=== PATIENT | female | born 1940 | race Caucasian/White ===

== ENCOUNTER 2016-11-05 02:40 | Inpatient (IN) | payer MEDICARE, BC ==
--- NOTE | 2016-11-05 02:49 | ED ---
Fall HPI - General Stated Complaint: Fall Time Seen by Provider: 11/05/16 02:46 Source: patient, EMS, RN notes reviewed Mode of arrival: EMS Limitations: no limitations - History of Present Illness Initial Comments: 76-year-old female presents emergency Department chief complaint fall. Patient states that she fell going to the bathroom onto her right hip. Patient denies any head injury, LOC. Patient denies any head or neck pain. Patient states she did fall a few days ago and struck her face and which she has some bruising though she has no pain associated with it. Patient states that she's had no prior hip fractures. Patient states that she is unable to get up and unable to ambulate. Patient denies any chest pain, shortness of breath. - Related Data Home Medications Medication Instructions Recorded Confirmed Gabapentin [Neurontin] 100 mg PO DAILY 08/01/14 08/03/14 Hydroxychloroquine Sulfate 200 mg PO BID 08/01/14 08/03/14 [Plaquenil] Methotrexate Sodium [Methotrexate] 2.5 mg PO WEEKLY 08/01/14 08/03/14 Pravastatin Sodium [Pravachol] 20 mg PO DAILY 08/01/14 08/03/14 amLODIPine BESYLATE [Norvasc] 5 mg PO DAILY 08/01/14 08/03/14 Allergies Allergy/AdvReac Type Severity Reaction Status Date / Time No Known Allergies Allergy Verified 08/01/14 12:29 Review of Systems ROS Statement: Those systems with pertinent positive or pertinent negative responses have been documented in the HPI. ROS Other: All systems not noted in ROS Statement are negative. Past Medical History Past Medical History: Hyperlipidemia History of Any Multi-Drug Resistant Organisms: None Reported Past Surgical History: Tubal Ligation Past Psychological History: Depression Smoking Status: Current every day smoker Past Alcohol Use History: Occasional Past Drug Use History: None Reported General Exam Limitations: no limitations General appearance: alert, in no apparent distress Head exam: Present: atraumatic, normocephalic, normal inspection Neck exam: Present: normal inspection, full ROM. Absent: tenderness, meningismus, lymphadenopathy Respiratory exam: Present: normal lung sounds bilaterally. Absent: respiratory distress, wheezes, rales, rhonchi, stridor Cardiovascular Exam: Present: regular rate, normal rhythm, normal heart sounds. Absent: systolic murmur, diastolic murmur, rubs, gallop, clicks Extremities exam: Present: other (There is some rotation on the right leg, tenderness with palpation to the right hip neurovascular intact patient has limited range of motion.) Neurological exam: Present: alert, oriented X3, CN II-XII intact Course Vital Signs 11/05/16 02:43 Pulse Rate 72 Respiratory 20 Rate Blood Pressure 157/78 O2 Sat by Pulse 92 L Oximetry Disposition Clinical Impression: Fall, Hip fracture, right Disposition: ADMITTED IP TO THIS HOSP Condition: Stable Addendum entered and electronically signed by Froy Sawyer, PAC 11/05/16 03:58 : EKG performed at 3:15 normal sinus rhythm with sinus arrhythmia, rate of 97 ND interval 152, QS duration 92, QT/QTC 372/472
--- NOTE | 2016-11-05 03:43 | XR ---
EXAMINATION TYPE: XR Hip RT and AP Pelvis DATE OF EXAM: 11/05/2016 3:32 AM COMPARISON: NONE History pain Technique 4 views. FINDINGS: There is a comminuted intratrochanteric fracture of the right femur with coxa vera deformity. The pel jona ring is intact. There is no dislocation. CONCLUSION: Comminuted intratrochanteric fracture right femur.
--- NOTE | 2016-11-05 03:45 | XR ---
EXAMINATION TYPE: XR chest 1V DATE OF EXAM: 11/05/2016 3:33 AM COMPARISON: NONE HISTORY: Fall. Hip fracture. TECHNIQUE: Single frontal view of the chest is obtained. FINDINGS: There is no heart failure nor confluent pneumonic infiltrate. There is slight coarsening o f interstitial markings. Costophrenic angles are clear. There are no hilar masses. There is mild pleu ral thickening at the lung apices. IMPRESSION: Pulmonary fibrosis and apical pleural scarring. No heart failure.
[2016-11-05 03:51] LABS: Anisocytosis Slight; Basophils % (A) 0 %; CHCM 32.1; Eosinophils # (A) 0.1 k/uL (0-0.7); Eosinophils % (A) 1 %; HCT 31.2 % (34.0-46.0); HDW 2.56; HGB 9.6 gm/dL (11.4-16.0); Luc # (Auto) 0.03; Luc % (Auto) 0; Lymphocytes # (A) 0.3 k/uL (1.0-4.8); Lymphocytes % (A) 2 %; MCH 26.9 pg (25.0-35.0); MCHC 30.7 g/dL (31.0-37.0); MCV 87.5 fL (80.0-100.0); Mean Platelet Volume 7.6; Monocytes # (A) 0.3 k/uL (0-1.0); Monocytes % (A) 2 %; Neutrophils # (A) 12.7 k/uL (1.3-7.7); Neutrophils % (A) 94 %; RBC 3.57 m/uL (3.80-5.40); RDW 16.2 % (11.5-15.5); WBC 13.4 k/uL (3.8-10.6); WBC (Perox) 14.11
[2016-11-05] MEDS ORDERED: ONDANSETRON 4 MG/2 ML VIAL IVP PRN (03:56)
[2016-11-05] MEDS ORDERED: NALOXONE 0.4 MG/ML 1 ML VIAL IV PRN (03:56)
[2016-11-05 04:00] LABS: INR 1.1 (<1.1); Partial Thromboplastin Time 23.7 sec (22.0-30.0); Prothrombin Time 10.8 sec (9.0-12.0)
[2016-11-05 04:02] LABS: ALT 34 U/L (9-52); AST 23 U/L (14-36); Alkaline Phosphatase 74 U/L (38-126); Anion Gap 13 mmol/L; Blood Urea Nitrogen 21 mg/dL (7-17); Calcium 8.9 mg/dL (8.4-10.2); Carbon Dioxide 22 mmol/L (22-30); Chloride 104 mmol/L (98-107); Glucose 104 mg/dL (74-99); Non-African American GFR(MDRD) >60 (>60 ml/min/1.73 sqM); Potassium 3.9 mmol/L (3.5-5.1); Sodium 139 mmol/L (137-145); Total Bilirubin 0.7 mg/dL (0.2-1.3); Total Protein 6.2 g/dL (6.3-8.2)
[2016-11-05 04:06] LABS: Appearance,Urine Cloudy (Clear); Bacteria,Urine Many /hpf; Bilirubin,Urine Negative (Negative); Glucose,Urine (UA) Negative (Negative); Ketones,Urine Negative (Negative); Leukocyte Esterase,Urine Large (Negative); Nitrite,Urine Positive (Negative); PH, Urine 6.5 (5.0-8.0); Particle Count 3904; Protein,Urine 1+ (Negative); RBC,Urine 2 /hpf (0-5); Specific Gravity,Urine 1.006 (1.001-1.035); UA Billing (MACRO vs. MICRO) MICRO; Urobilinogen,Urine <2.0 mg/dL (<2.0); WBC,Urine 88 /hpf (0-5)
[2016-11-05 04:59] VITALS: BMI 18.1
[2016-11-05] MEDS: MORPHINE SULFATE 4 MG/ML SYRINGE IV PRN ×5 (05:13→21:38)
[2016-11-05] MEDS: SODIUM CHLORIDE 0.9% 1,000 ML IV SCH ×2 (05:14→17:52)
--- NOTE | 2016-11-05 08:41 | P.HPOR ---
<Alexandrea Blake - Last Filed: 11/05/16 08:37> History of Present Illness H&P Date: 11/05/16 Chief Complaint: Right hip fracture This is a 76-year-old female who fell in her home yesterday sustaining injury to her right hip. She had a fall a few days prior as well injuring the left side of her face. On exam and x-ray in the emergency department last evening she is found to have an intertrochanteric fracture of the right hip. She is admitted to our service for surgical intervention and care. Past Medical History Past Medical History: Hyperlipidemia History of Any Multi-Drug Resistant Organisms: None Reported Past Surgical History: Tubal Ligation Past Anesthesia/Blood Transfusion Reactions: No Reported Reaction Past Psychological History: Depression Smoking Status: Former smoker Past Alcohol Use History: Occasional Past Drug Use History: None Reported - Past Family History Father Family Medical History: No Reported History Mother Family Medical History: Hyperlipidemia Medications and Allergies Home Medications Medication Instructions Recorded Confirmed Type Gabapentin [Neurontin] 100 mg PO HS 08/01/14 11/05/16 History Hydroxychloroquine Sulfate 200 mg PO BID 08/01/14 11/05/16 History [Plaquenil] Methotrexate Sodium [Methotrexate] 17.5 mg PO WE 08/01/14 11/05/16 History Pravastatin Sodium [Pravachol] 20 mg PO HS 08/01/14 11/05/16 History amLODIPine BESYLATE [Norvasc] 5 mg PO DAILY 08/01/14 11/05/16 History Cholecalciferol [Vitamin D3] 2,000 unit PO BID 11/05/16 11/05/16 History Famotidine [Pepcid AC] 10 mg PO BID 11/05/16 11/05/16 History Folic Acid 1 mg PO DAILY 11/05/16 11/05/16 History Krill Oil 800 mg PO BID 11/05/16 11/05/16 History buPROPion XL [Wellbutrin Xl] 150 mg PO DAILY 11/05/16 11/05/16 History traMADol HCL [Ultram] 50 mg PO DAILY PRN 11/05/16 11/05/16 History Allergies Allergy/AdvReac Type Severity Reaction Status Date / Time No Known Allergies Allergy Verified 08/01/14 12:29 Physical Examination This is a 68-year-old female in no acute distress. She is alert and oriented 3. Exam of the head neck reveal no obvious deformity. There is ecchymosis about the left side of her face about the mandible and chin. There is no pain to palpation about cervical spine or paraspinal musculature. Exam the upper extremities unremarkable. She has full shoulder, elbow, wrist and finger motion without difficulty or pain. Neurovascular status to the upper extremities is intact. Exam of the lower extremities reveals shortening and external rotation of the right leg. There is pain with any motion to the right hip. She has full foot and ankle motion without difficulty. Pedal pulse +2/4. Neurovascular status to the lower extremities intact. Results X-rays of the pelvis and right hip reveal a comminuted intertrochanteric fracture of the right hip which may possibly extend into the subtrochanteric region. - Labs Result Diagrams: 11/05/16 03:44 11/05/16 03:44 Assessment and Plan (1) Intertrochanteric fracture of right hip Status: Acute Plan: The clinical Findings are discussed with the patient. We're planning closed reduction with insertion of intertrochanteric nail of the right hip today. The procedures been discussed in detail including the possible risks and outcomes of surgery. It is recommended that the patient go to inpatient rehab postoperatively. After discussion and consideration the patient elects to proceed with the above- mentioned procedure. <Haily Garcia - Last Filed: 11/06/16 09:42> History of Present Illness H&P Date: 11/05/16 Pt. seen and examined in preoperative area. chart reviewed .. Patient and had questions which were answered to the best of my ability. Risk of the injury and proposed treatment were dicussed. They elect ot proceed with right hip surgery for her intertrochanteric frature as planned. Physical Examination Osteopathic Statement: *. No significant issues noted on an osteopathic structural exam other than those noted in the History and Physical/Consult. Results - Labs Labs: Abnormal Lab Results - Last 24 Hours (Table) 11/06/16 Range/Units 03:05 Urine Appearance Turbid H (Clear) Urine Protein 1+ H (Negative) Urine Blood Small H (Negative) Ur Leukocyte Esterase Large H (Negative) Urine RBC 18 H (0-5) /hpf Urine WBC >182 H (0-5) /hpf Urine WBC Clumps Many H (None) /hpf Urine Bacteria Occasional H (None) /hpf Urine Mucus Occasional H (None) /hpf Result Diagrams: 11/05/16 03:44 11/05/16 03:44
[2016-11-05] MEDS ORDERED: LEVOFLOXACIN 500MG-D5W PMX 500 MG in DEXTROSE/WATER 1 100ML.BAG IVPB SCH (11:00)
[2016-11-05] MEDS: DIAZEPAM 5 MG/ML 2 ML SYRINGE IVP PRN ×3 (11:03→23:55)
[2016-11-05] MEDS: traMADol 50 MG TAB PO PRN (14:20)
[2016-11-05] MEDS: PRAVASTATIN SODIUM 20 MG TAB PO SCH (21:10)
[2016-11-05] MEDS: GABAPENTIN 100 MG CAP PO SCH (21:11)
[2016-11-05] MEDS: FAMOTIDINE 20 MG TAB PO SCH (21:11)
[2016-11-05] MEDS: HYDROXYCHLOROQUINE SULFATE 200 MG TAB PO SCH (21:12)
--- NOTE | 2016-11-05 23:02 | CONS ---
DATE OF CONSULTATION: REASON FOR CONSULTATION: Preoperative clearance. Patient is a 76-year-old female who had a mechanical fall and sustained an injury to the right hip. Patient is undergoing intramedullary nailing. I was consulted for preoperative clearance. Patient is clinically doing well. Patient's past medical history is significant for hyperlipidemia. Patient's functional status is greater than 4 ( ). Patient denied any fever or chills. Patient used to smoke in the past, years ago. Patient had moderate aortic stenosis from the previous echocardiogram. EKGs showed normal sinus rhythm. Patient does not have any chest pain. Patient is not in heart failure. Patient is at intermediate risk because of her age and previous aortic stenosis, but patient should not have any problems during the preoperative and operative period. ROS: all other systems were reviewed and were negative. Past medical history is significant for: 1. Advanced dementia. 2. Diabetes mellitus 3. Gastroesophageal reflux disease. 4. Hypertension. 5. Not sure whether patient has CKD or not. 6. Alzheimer's dementia. 7. Metabolic encephalopathy. 8. Osteomyelitis in the past. Not sure whether patient ever smoked or ever drank alcohol. ( ) at this time FAMILY HISTORY: Irrelevant at this point of time. Unable to obtain. Home medications included: 1. Acetaminophen. 2. Aspirin. 3. Lorazepam. 4. Metoprolol. 5. Omeprazole. 6. Seroquel. 7. Metformin. 8. Docusate. 9. Silver gel. ALLERGIES: NO KNOWN DRUG ALLERGIES. PHYSICAL EXAMINATION: VITAL SIGNS: Temperature 99.6, pulse of 95, respiratory rate of 28. Blood pressure is 129/57. Saturating at 98% on room air. GENERAL: Patient is non-verbal. Patient is alert. Unable to assess orientation. HEENT: Pupils are round and equally reacting to light. EOMI. No scleral icterus. No conjunctival pallor. Normocephalic, atraumatic. No pharyngeal erythema. No thyromegaly. CARDIOVASCULAR: S1 and S2 present. No murmurs, rubs, or gallops. PULMONARY: Chest is clear to auscultation, no wheezing or crackles. ABDOMEN: Soft, nontender, nondistended, normoactive bowel sounds. No palpable organomegaly. MUSCULOSKELETAL: No joint swelling or deformity. EXTREMITIES: No cyanosis, clubbing, or pedal edema. NEUROLOGICAL: Significantly limited. Unable to assess at this point of time, although patient does not have any ( ) new focal deficits. SKIN: No rashes. Patient does have a chronic Agrawal catheter with significant evidence of pyuria, which I believe ( ) during this hospitalization. LABORATORY DATA: Patient has a PEG tube in place. PEG tube site area does not appear to be infected. CBC, CMP are abnormal for elevated WBC count of 18,400. Patient has mild low-grade fever. Hemoglobin of 11.5. BUN of 41, creatinine 1.40. His normal creatinine is around 0.4. Blood glucose is 190. ABGs show 7.48 pH and pCO2 of 32, pO2 of 130. UA significantly abnormal with greater than 182 WBCs, although patient has a Agrawal catheter. Chest x-ray showed some atelectasis. ASSESSMENT AND PLAN: 1. Severe sepsis and septic shock temporarily requiring pressor support, and ( ) urinary tract infection. Patient has a chronic Agrawal catheter. This is probably related to a Agrawal catheter-related infection. Patient was on pressor support. Will continue with Zosyn. I do not believe levofloxacin is necessary, and levofloxacin will be discontinued. 2. Altered mental status and metabolic encephalopathy secondary to sepsis. 3. Advanced dementia. Discussed with ( ) Patient most appropriately will be comfort care and hospice. 4. Elevated troponins. Rule out [id number] myocardial infarction. Cardiology was consulted. 5. Acute renal failure, probably due to prerenal azotemia and septic shock. 6. Metabolic acidosis, metabolic alkalosis ( ) secondary to possible lactic acidosis. Metabolic alkalosis secondary to contraction alkalosis. Patient does have superimposed respiratory alkalosis to correct metabolic acidosis. 7. Type 2 diabetes mellitus. 8. Hypertension. 9. Possibility of chronic kidney disease, stage II. 10. Gastroesophageal reflux disease. 11. Anxiety disorder. Plan is to continue with IV fluids, IV antibiotics. In ideal scenario, patient should not be on morphine and patient should not be on Xanax, but in his situation, patient most probably will go for comfort care. Because of that reason, I am going ahead and continuing those medications and continue with antibiotics. Continue with IV fluids. Discussed course of care with the guardian. Patient, as mentioned above, is appropriate for comfort care. Those decisions will be made ( ) tomorrow once we have the guardian here. MARÍA
[2016-11-06 03:38] LABS: Appearance,Urine Turbid (Clear); Bacteria,Urine Occasional /hpf; Bilirubin,Urine Negative (Negative); Glucose,Urine (UA) Negative (Negative); Ketones,Urine Negative (Negative); Leukocyte Esterase,Urine Large (Negative); Mucus,Urine Occasional /hpf; Nitrite,Urine Negative (Negative); Particle Count 64885; Protein,Urine 1+ (Negative); RBC,Urine 18 /hpf (0-5); Squamous Epithelial Cell,Urine 2 /hpf (0-4); UA Billing (MACRO vs. MICRO) MICRO; Urobilinogen,Urine <2.0 mg/dL (<2.0); WBC,Urine >182 /hpf (0-5)
[2016-11-06] MEDS: SODIUM CHLORIDE 0.9% 1,000 ML IV SCH ×2 (05:45→21:25)
[2016-11-06] MEDS ORDERED: ONDANSETRON 4 MG/2 ML VIAL IVP PRN (06:32)
[2016-11-06] MEDS ORDERED: HYDROmorphone 1 MG/ML 1 ML SYRINGE IVP PRN (06:32)
[2016-11-06] MEDS ORDERED: IV FLUID CONTINUATION 1,000 ML IV ONE (08:50)
[2016-11-06] MEDS: HYDROXYCHLOROQUINE SULFATE 200 MG TAB PO SCH ×2 (09:09→21:27)
[2016-11-06] MEDS: buPROPion XL 150 MG TAB.ER.24H PO SCH (09:09)
[2016-11-06] MEDS: FAMOTIDINE 20 MG TAB PO SCH ×2 (09:09→21:27)
[2016-11-06] MEDS ORDERED: PHENYLEPHRINE-0.9% NACL SYG 1 MG/10 ML SYRINGE ONE (09:33)
[2016-11-06] MEDS ORDERED: ePHEDrine 50 MG/ML 1 ML AMP ONE (09:33)
[2016-11-06] MEDS ORDERED: PROPOFOL 10 MG/ML 20 ML VIAL IV ONE (09:33)
[2016-11-06] MEDS ORDERED: MIDAZOLAM 2 MG/2 ML VIAL ONE (09:33)
[2016-11-06] MEDS ORDERED: KETAMINE 10 MG/ML 20 ML VIAL ONE (09:33)
[2016-11-06] MEDS ORDERED: fentaNYL (PF) 50 MCG/ML 2 ML AMP ONE (09:33)
[2016-11-06] MEDS: ceFAZolin 2 GM in SODIUM CHLORIDE 0.9% 100 ML IVPB ONE ×3 (09:35→16:08)
[2016-11-06] MEDS ORDERED: ceFAZolin 1,000 MG in SODIUM CHLORIDE 0.9% 1,000 ML IRRIGATION ONE (10:14)
[2016-11-06] MEDS ORDERED: LACTATED RINGERS 1,000 ML IV ONE (10:15)
[2016-11-06] MEDS: LACTATED RINGERS 1,000 ML IV SCH (10:52)
[2016-11-06] MEDS ORDERED: MAGNESIUM HYDROXIDE 2,400 MG/10 ML CUP PO PRN (10:58)
[2016-11-06] MEDS ORDERED: NALOXONE 0.4 MG/ML 1 ML VIAL IV PRN (10:58)
[2016-11-06] MEDS ORDERED: HYDROcodone/APAP 5-325MG 1 EACH TAB PO PRN ×2 (10:58)
--- NOTE | 2016-11-06 11:02 | XR ---
EXAMINATION TYPE: XR Hip Complete RT DATE OF EXAM: 11/06/2016 10:56 AM COMPARISON: NONE HISTORY: Postoperative change There is postoperative change in near anatomic alignment. There is soft tissue edema and emphysema. IMPRESSION: 1. Postoperative change. Appears in near-anatomic alignment.
--- NOTE | 2016-11-06 11:02 | FL ---
EXAMINATION TYPE: FL guidance operating room DATE OF EXAM: 11/06/2016 10:56 AM HISTORY: Flouroscopy time 1 minute and 19 seconds of fluoroscopy provided. IMPRESSION: 1. Fluoroscopy time.
--- NOTE | 2016-11-06 11:13 | P.OP ---
Date of Procedure: 11/06/16 Preoperative Diagnosis: Right hip comminuted intertrochanteric fracture, closed neurovascular intact Postoperative Diagnosis: Same Procedure(s) Performed: Implants: Anesthesia: spinal Pathology: other (Proximal femoral reamings sent to pathology) Condition: stable Indications for Procedure: Operative Findings: Description of Procedure: Preoperative diagnosis: Intertrochanteric femoral hip fracture, right comminuted neurovascular intact Postoperative diagnosis: Same Procedure: intertrochanteric hip screw placement Use of fluoroscopic guidance Closed reduction Surgeon: Dr. Radha Dupree.: Alexandrea Blake who is present that the entire the case persistence during positioning dissection exposure placement of hardware and closure Anesthesia: Spinal Estimated blood loss: Approximately 50 mL Components implanted: [employer] InterTAN nail 11.5 x 18, with a 95 mm lag screw and 90 mm compression screw and a 27.5 x 5 distal locking screw Disposition: To recovery room in good stable condition Operative indications The patient sustained a injury and suffered a hip fracture at the inter- trochanteric area of her femur which was displaced and angulated. We were involved in the case in regard to his hip fracture. After evaluation it was determined that they would be a candidate for internal fixation of the fracture using an intramedullary hip screw via surgical intervention. This would give them the best chance of healing, mobilization and ambulation. We discussed the range of treatment options from conservative to surgical. I discussed the case with the patient and with her at length in the preoperative holding area before the procedure. We discussed the nature of the injury as well as the different treatment options. They elected proceed with surgical intervention. We answered their questions to the best of our ability healing which they can understand. They signed an informed consent. Operative summary After obtaining informed consent evaluation by anesthesia, preoperative evaluation and clearance for medical service, the patient was identified and prepped Agrawal area and the surgical site was marked. There brought to the operating room where the given appropriate anesthesia by the anesthesia department in standard fashion without any complications. Once the anesthesia was established we were able to position the patient. The patient was placed on a fracture table with a well-padded perineal post. The operative side was placed in a foot olmstead stirrup which was well-padded well molded and placed in gentle in-line traction. The nonoperative leg was placed in a padded stirrup. C-arm was brought in and we performed a closed reduction technique at the hip. We are able to get good alignment good position of the intertrochanteric fracture with gentle reduction techniques and traction utilizing the fracture table. Once patient was well positioned lower extremity was prepped and draped in normal standard sterile fashion. An appropriate keystone protocol and timeout was completed and were able to proceed with surgery. He started point just proximal to the greater trochanter was established and a median incision approximately 2 inches in length approximately to the greater trochanter. I dissected down through the fascia and I was able to expose the tip of the greater trochanter. A sharp starting hole was established at the tip of the greater trochanter near the junction of the anterior and middle third. Positioning was confirmed with C-arm guidance. I was able to start the awl into the bone and then use a guidepin at the starting point establish down to the level of the lesser trochanter at the intramedullary space. I then used a starting reamer for the greater trochanter placed over the guidepin and reamed down appropriately under C-arm guidance. I was unable to place a guidepin into the intramedullary aspect of the femur and then reamed appropriately to the appropriate length. The positioning was confirmed on C-arm guidance. With the femur appropriately reamed I then chose the appropriate size intramedullary aylin which was connected to the appropriate jig. The jig was checked for alignment. The area was copiously irrigated and suctioned dry and we're able place the aylin at intramedullary space through the starting hole appropriately. It was seated down for appropriate position to align the leg pain into the femoral neck and head. A second incision was established at the site for the placement of the lag screw area and the guide was established at the lateral aspect of the femur and a guidepin was drilled into the femoral neck and head and near center center position. With this appropriate alignment and position where a reamer over the guidepin making sure not to penetrate the articular surface. The position was confirmed on C-arm guidance in AP and lateral positions. With this established we were able to place the appropriate size lag screw after measuring. I did the appropriate drill holes for the lag screw and the compression screw. Lag screw was placed into the femoral neck and head good alignment good position with excellent bony purchase. I was able place the compression screw which gave good compression across the fracture site and excellent bony purchase and alignment. It was appropriately aligned, with the fracture and excellent alignment and position. With the area in good position able place a distal locking screw. We utilized the triple guide sleeve a separate incision was made at the skin. The guide sleeve was placed in the lateral aspect of the femur and the distal locking screw hole was established through the femur and distal locking hole of the intramedullary aylin. It was measured appropriately and a distal locking screw was placed in good alignment and good position with excellent bony purchase. The position was checked to make sure it was through the appropriate hole in the intramedullary aylin. With this established we're able to remove the jig completely from the aylin and final images were taken which showed excellent alignment and position of the hardware and the fracture. With the aylin in place and the fracture stable, although the incision sites were copiously irrigated and suctioned dry. Good hemostasis was maintained. Deep fascial layers were closed with #1 Vicryl. Subcu tissue was closed with 2-0 Vicryl. Subcuticular tissues closed with 3-0 Vicryl. Was are cleaned and dried with dressed with Dermabond, gauze and tape. Drapes were broken down, the hip was held in stable position with the post being removed safely once the positioning was stabilized. The patient was then transferred back to their hospital bed being careful to maintain the hip and C- spine alignment and airway. Once stable to patient was transferred back to the postanesthesia care unit to be readmitted for pain control and DVT prophylaxis medical management and monitoring and mobilization we will continue follow patient closely throughout their postoperative course.
[2016-11-06] MEDS ORDERED: hydrALAZINE HCL 20 MG/ML 1 ML VIAL IVP PRN (12:43)
[2016-11-06] MEDS: LEVOFLOXACIN 250MG-D5W PMX 250 MG in DEXTROSE/WATER 1 50ML.BAG IVPB SCH (13:58)
[2016-11-06 14:09] LABS: Basophils % (A) 0 %; CH 26.9; Eosinophils % (A) 0 %; HCT 32.4 % (34.0-46.0); HDW 2.61; HGB 9.9 gm/dL (11.4-16.0); Hypochromasia Marked; Luc # (Auto) 0.19; Luc % (Auto) 1; Lymphocytes # (A) 0.5 k/uL (1.0-4.8); Lymphocytes % (A) 4 %; MCH 27.7 pg (25.0-35.0); MCHC 30.7 g/dL (31.0-37.0); MCV 90.2 fL (80.0-100.0); Mean Platelet Volume 7.7; Monocytes # (A) 0.3 k/uL (0-1.0); Monocytes % (A) 2 %; Neutrophils # (A) 12.4 k/uL (1.3-7.7); Neutrophils % (A) 92 %; RBC 3.59 m/uL (3.80-5.40); RDW 15.7 % (11.5-15.5); WBC 13.5 k/uL (3.8-10.6); WBC (Perox) 13.89
[2016-11-06] MEDS: ceFAZolin 2 GM in SODIUM CHLORIDE 0.9% 100 ML IVPB SCH ×2 (16:37→23:29)
[2016-11-06] MEDS ORDERED: WARFARIN 5 MG TAB PO ONE (18:00)
[2016-11-06] MEDS: CHOLECALCIFEROL 1,000 UNIT TAB PO SCH (21:26)
[2016-11-06] MEDS: PRAVASTATIN SODIUM 20 MG TAB PO SCH (21:27)
[2016-11-06] MEDS: GABAPENTIN 100 MG CAP PO SCH (21:27)
[2016-11-07] MEDS: LACTATED RINGERS 1,000 ML IV SCH (01:57)
[2016-11-07 07:22] LABS: INR 1.1 (<1.1); Prothrombin Time 11.2 sec (9.0-12.0)
[2016-11-07] MEDS: amLODIPine 5 MG TAB PO SCH (07:42)
[2016-11-07] MEDS: CHOLECALCIFEROL 1,000 UNIT TAB PO SCH ×2 (07:42→22:09)
[2016-11-07] MEDS: HYDROXYCHLOROQUINE SULFATE 200 MG TAB PO SCH ×2 (07:43→22:06)
[2016-11-07] MEDS: FAMOTIDINE 20 MG TAB PO SCH ×2 (07:43→22:06)
[2016-11-07] MEDS: buPROPion XL 150 MG TAB.ER.24H PO SCH (07:43)
[2016-11-07] MEDS: traMADol 50 MG TAB PO PRN ×2 (07:44→12:37)
[2016-11-07] MEDS: LEVOFLOXACIN 250MG-D5W PMX 250 MG in DEXTROSE/WATER 1 50ML.BAG IVPB SCH (07:44)
--- NOTE | 2016-11-07 09:43 | P.PN ---
Progress Note - Text Postoperative day #1 Patient is seen and examined today at bedside. The patient has some pain around the surgical site as expected. Pain is being controlled with medication. She declines try to get up out of bed with therapy today but I encouraged her that she needs to get out of bed today with toe-touch weightbearing on the right lower extremity. Physical Exam Afebrile with stable vital signs Abdomen is soft nontender. Chest has good excursion deep and space expiration The incision site is clean dry and intact. No erythema there is no purulence. Her right hip has minimal swelling. The dressing is intact. Extremities have not had neurologic change from prior to surgery. She has sustained dorsiflexion plantar flexion and extensor hallucis longus. We are able to some in her knee and rotated her hip this morning and she tolerated that adequately. Calves and thighs were soft nontender without evidence of DVT. Assessment/Plan Postoperative day #1 status post intramedullary hip screw for her right intertrochanteric hip fracture status post fall Patient is progressing as expected from the surgery. She needs to get up out of bed today with assistance. I encouraged her that she should not decline the assistance to get out of bed and will get out of bed today toe-touch weightbearing right lower extremity. Hopefully we'll be able to get her fully out as she improves her mobility. Her urine certainly looks more clear today. We will continue to increase the patient's mobilization with therapy. We will continue pain control with oral or IV medications. We'll continue to follow patient closely. She is a likely candidate for rehab at [facility] potentially Wednesday or Wednesday.
--- NOTE | 2016-11-07 11:19 | PN ---
DATE OF SERVICE: 11/06/2016 This 76-year-old woman was admitted with severe sepsis and septic shock related to urinary tract infection. She is being closely monitored. The patient appears to be tired. The patient also had a change in mental status also. The patient is being closely monitored at this time. The patient had a right hip fracture. The patient underwent intertrochanteric ablation. The patient is sedated at this time after surgery. PAST MEDICAL HISTORY: Reviewed. REVIEW OF SYSTEMS: The patient is sedated. Current medications are reviewed and include: 1. [place] 5 mg every 6 hours. 2. Norvasc. 4. Vitamin D3. 5. Valium. 6. Pepcid. 7. Folic acid. 8. Dilaudid. 9. Plaquenil. 10. Milk of Magnesia. 11. Methotrexate. 12. Narcan. 13. Zofran. 14. Zocor. 15. Pravachol. 16. Ultram. PHYSICAL EXAMINATION: Patient is sedated. Pulse 57, blood pressure 130/60, respirations 16, temperature 97.4, pulse ox 94% on 3 liters. HEENT: Conjunctivae normal. Oral mucosa moist. NECK: No jugular venous distention, no carotid bruits, no lymph node enlargement. CARDIOVASCULAR: S1 and S2. LUNGS: Breath sounds are diminished at the bases. No rhonchi. ABDOMEN: Soft, nontender. EXTREMITIES: Legs status post surgery. NERVOUS SYSTEM: No focal deficit. LABS: WBC 13.5, hemoglobin is 9.9. UA noted. ASSESSMENT: 1. Right hip comminuted intertrochanteric fracture, status post intertrochanteric hip screw placement and a closed reduction. 2. Urinary tract infection with sepsis, septic shock and severe sepsis, possibly Agrawal catheter related. 3. Change in mental status, metabolic encephalopathy. 4. History of dementia. 5. Elevated troponin, indeterminate. 6. Acute renal failure, possible, possibly prerenal. 7. Diabetes mellitus type 2. 8. Hypertension. 9. Chronic kidney disease, stage II. 10. Gastroesophageal reflux disease. 11. History of anxiety state. 12. FULL CODE. 13. Moderate to severe protein calorie malnutrition with body mass index of 18.1. 14. Gait dysfunction. RECOMMENDATIONS: This 70-year-old woman presented with multiple complex medical problems. We will monitor the patient closely, continue current medications and continue with broad spectrum IV antibiotics. Follow cultures. Closely follow with orthopedic surgery. DVT prophylaxis. Otherwise, guarded prognosis because of multiple complex medical issues. Further recommendations to follow. MTDD
[2016-11-07] MEDS: FOLIC ACID 1 MG TAB PO SCH (12:37)
[2016-11-07] MEDS: SODIUM CHLORIDE 0.9% 1,000 ML IV SCH (17:21)
[2016-11-07] MEDS ORDERED: WARFARIN 7.5 MG TAB PO ONE (18:00)
[2016-11-07] MEDS: PRAVASTATIN SODIUM 20 MG TAB PO SCH (22:06)
[2016-11-07] MEDS: GABAPENTIN 100 MG CAP PO SCH (22:09)
[2016-11-08] MEDS: SODIUM CHLORIDE 0.9% 1,000 ML IV SCH ×3 (01:30→21:19)
[2016-11-08] MEDS: LACTATED RINGERS 1,000 ML IV SCH ×2 (04:05→21:19)
[2016-11-08] MEDS: HYDROXYCHLOROQUINE SULFATE 200 MG TAB PO SCH ×2 (07:50→21:16)
[2016-11-08] MEDS: CHOLECALCIFEROL 1,000 UNIT TAB PO SCH ×2 (07:50→21:15)
[2016-11-08] MEDS: FAMOTIDINE 20 MG TAB PO SCH ×2 (07:51→21:16)
[2016-11-08] MEDS: amLODIPine 5 MG TAB PO SCH (07:51)
[2016-11-08] MEDS: buPROPion XL 150 MG TAB.ER.24H PO SCH (07:51)
[2016-11-08] MEDS: FOLIC ACID 1 MG TAB PO SCH (07:52)
--- NOTE | 2016-11-08 10:02 | PN ---
DATE OF SERVICE: 11/07/2016 This 70-year-old woman was admitted with right hip surgery. The patient also had urinary tract infection. Patient is on broad-spectrum IV antibiotics. No chest pain, no palpitation, no fever. Sensorium has improved slightly today. On exam, alert and oriented x2. Pulse 90, blood pressure 135/60, respiratory rate 16, temperature 98.2, pulse ox 93% on room air. HEENT: Conjunctivae normal. NECK: No jugular venous distention. HEART: S1 and S2, muffled. RESPIRATORY: Breath sounds diminished, especially at the bases. Scattered rhonchi. ABDOMEN: Soft, no tenderness. EXTREMITIES: Status post surgery. NERVOUS: No focal deficits. Diffusely weak. LABS: WBC 13.3, hemoglobin is 9.9. UA noted. Cultures are pending at this time. REVIEW OF SYSTEMS: ENT: No history of diminished hearing or vision. CARDIOVASCULAR: No angina or palpitations. RESPIRATORY: No cough, no hemoptysis. GASTROINTESTINAL: No nausea, vomiting, or diarrhea. GENITOURINARY: No dysuria. NERVOUS: No numbness or weakness. Current medications are: 1. [place] 5 mg q6 hours. 2. Norvasc 5 mg daily. 3. Vitamin D3 4. Valium. 5. Wellbutrin. 6. Folic acid. 9. Levaquin 250 daily. 10. Methotrexate. 11. Morphine. 12. Narcan. 13. Zofran. 14. Pravachol. 15. Ultram. 16. Coumadin. ASSESSMENT: 1. Right hip comminuted intertrochanteric fracture, status post intertrochanteric hip screw placement as well as closed reduction. 2. Urinary tract infection with sepsis, present on admission, septic shock with severe sepsis, possible Agrawal catheter induced related. 3. Change in mental status, metabolic encephalopathy. 4. History of dementia. 5. Elevated troponin, indeterminate. 6. Acute renal failure, possible prerenal with acute tubular necrosis. 7. Diabetes mellitus type 2. 8. Hypertension. 9. Chronic kidney disease, stage II. 10. Gastroesophageal reflux disease. 11. History of anxiety state. 12. Moderate to severe protein calorie malnutrition with a body mass of 18.1. 13. Gait dysfunction. 14. FULL CODE. RECOMMENDATIONS AND DISCUSSION: This 70-year-old woman presented with multiple complex medical issues. Will monitor the patient closely, continue the current medication, await culture. White count is still elevated, will recommend repeat labs. Continue antibiotics, DVT prophylaxis. Guarded prognosis because of multiple complex medical issues. Further recommendations to follow. MTDD
--- NOTE | 2016-11-08 10:50 | P.PN ---
Subjective Principal diagnosis: Right hip fracture Patient is postop day #2 from insertion of right IT nail for her intertrochanteric hip fracture. She has pain at the surgical site which is controlled. She denies any new complaints. She is denying numbness, tingling or weakness in the lower extremity. She has no calf pain. Review of systems is negative for fever, chills, chest pain, shortness breath or other. Objective - Vital Signs Vital signs: Vital Signs Temp 97.7 F 11/08/16 07:00 Pulse 83 11/08/16 08:00 Resp 14 11/08/16 08:00 BP 172/76 11/08/16 07:00 Pulse Ox 93 L 11/08/16 07:00 Intake & Output 11/07/16 11/08/16 11/08/16 18:59 06:59 18:59 Intake Total 960 150 Output Total 500 1300 Balance 460 -1150 Intake: IV 600 Sodium Chloride 0.9% 1, 600 000 ml @ 75 mls/hr IV . [id number] JARRED Rx#:[id number] Oral 360 150 Output: Urine 500 1300 Uretheral (Agrawal) 1300 Other: Voiding Method Indwelling Catheter Indwelling Catheter Indwelling Catheter - Exam Inspection of the right lower extremity shows benign surgical wounds. There is no active bleeding, dehiscence or drainage. Motor and sensation is intact throughout the right lower extremity. She has active dorsiflexion and plantarflexion along with sensation to light touch intact. The calf is soft and nontender. 2+ dorsalis pedis pulses and less than 2 second cap refill is present. - Constitutional General appearance: Present: no acute distress - Psychiatric Psychiatric: Present: A&O x's 3, appropriate affect, intact judgment & insight - Labs CBC & Chem 7: 11/06/16 13:44 11/05/16 03:44 Labs: Microbiology - Last 24 Hours (Table) 11/07/16 14:15 Urine Culture - Preliminary Urine,Catheterized Assessment and Plan (1) Intertrochanteric fracture of right hip Narrative/Plan: She'll continue with routine postop orthopedic protocol including pain management, wound care, physical therapy, DVT prophylaxis and medical management. Expect that she will transfer to an extended care facility in the next 1-2 days. Status: Acute Time with Patient: Less than 30
[2016-11-08 10:54] LABS: Basophils % (A) 0 %; CH 26.9; CHCM 30.6; Eosinophils # (A) 0.1 k/uL (0-0.7); Eosinophils % (A) 1 %; HCT 32.3 % (34.0-46.0); HDW 2.71; Hypochromasia Moderate; Luc # (Auto) 0.22; Luc % (Auto) 2; Lymphocytes # (A) 0.6 k/uL (1.0-4.8); Lymphocytes % (A) 7 %; MCH 27.2 pg (25.0-35.0); MCHC 30.8 g/dL (31.0-37.0); MCV 88.3 fL (80.0-100.0); Mean Platelet Volume 7.1; Monocytes # (A) 0.3 k/uL (0-1.0); Monocytes % (A) 4 %; Neutrophils # (A) 8.2 k/uL (1.3-7.7); Neutrophils % (A) 87 %; RBC 3.66 m/uL (3.80-5.40); RDW 15.9 % (11.5-15.5); WBC 9.4 k/uL (3.8-10.6)
[2016-11-08 11:13] LABS: Anion Gap 14 mmol/L; Blood Urea Nitrogen 14 mg/dL (7-17); Calcium 8.6 mg/dL (8.4-10.2); Carbon Dioxide 24 mmol/L (22-30); Chloride 104 mmol/L (98-107); Glucose 112 mg/dL (74-99); Non-African American GFR(MDRD) >60 (>60 ml/min/1.73 sqM); Potassium 3.2 mmol/L (3.5-5.1); Sodium 142 mmol/L (137-145)
[2016-11-08] MEDS: LEVOFLOXACIN 250MG-D5W PMX 250 MG in DEXTROSE/WATER 1 50ML.BAG IVPB SCH (11:41)
[2016-11-08 12:19] LABS: INR 2.6 (<1.1); Prothrombin Time 25.5 sec (9.0-12.0)
[2016-11-08] MEDS ORDERED: POTASSIUM CHLORIDE ER 20 MEQ TAB.ER PO STA (15:37)
[2016-11-08] MEDS ORDERED: WARFARIN 2.5 MG TAB PO ONE (18:00)
[2016-11-08] MEDS: GABAPENTIN 100 MG CAP PO SCH (21:16)
[2016-11-08] MEDS: PRAVASTATIN SODIUM 20 MG TAB PO SCH (21:16)
[2016-11-09 07:39] LABS: Basophils % (A) 0 %; CH 27.2; CHCM 31.2; Eosinophils # (A) 0.1 k/uL (0-0.7); Eosinophils % (A) 1 %; HCT 29.5 % (34.0-46.0); HDW 2.67; Hypochromasia Slight; Luc # (Auto) 0.17; Luc % (Auto) 3; Lymphocytes # (A) 0.6 k/uL (1.0-4.8); Lymphocytes % (A) 10 %; MCH 26.8 pg (25.0-35.0); MCHC 30.5 g/dL (31.0-37.0); MCV 87.6 fL (80.0-100.0); Mean Platelet Volume 8.7; Monocytes # (A) 0.5 k/uL (0-1.0); Monocytes % (A) 7 %; Neutrophils # (A) 5.1 k/uL (1.3-7.7); Neutrophils % (A) 80 %; RBC 3.36 m/uL (3.80-5.40); RDW 15.9 % (11.5-15.5); WBC 6.4 k/uL (3.8-10.6); WBC (Perox) 7.17
[2016-11-09 08:05] LABS: Anion Gap 11 mmol/L; Blood Urea Nitrogen 19 mg/dL (7-17); Calcium 8.6 mg/dL (8.4-10.2); Carbon Dioxide 27 mmol/L (22-30); Chloride 105 mmol/L (98-107); Glucose 105 mg/dL (74-99); Non-African American GFR(MDRD) >60 (>60 ml/min/1.73 sqM); Potassium 3.6 mmol/L (3.5-5.1); Sodium 143 mmol/L (137-145)
[2016-11-09] MEDS: CHOLECALCIFEROL 1,000 UNIT TAB PO SCH (08:28)
[2016-11-09] MEDS: amLODIPine 5 MG TAB PO SCH (08:29)
[2016-11-09] MEDS: HYDROXYCHLOROQUINE SULFATE 200 MG TAB PO SCH (08:29)
[2016-11-09] MEDS: traMADol 50 MG TAB PO PRN (08:29)
[2016-11-09] MEDS: buPROPion XL 150 MG TAB.ER.24H PO SCH (08:29)
[2016-11-09] MEDS: FAMOTIDINE 20 MG TAB PO SCH (08:29)
[2016-11-09 08:47] VITALS: BP 126/60; PULSE 83; RESP 14; TEMP 98.3
--- NOTE | 2016-11-09 09:39 | PN ---
DATE OF SERVICE: 11/08/2016 This 70-year-old woman was admitted with right hip comminuted fracture. Had surgery. The patient also had a change in mental status and UTI also noted. No fever. No cough. The patient is much more alert at this point. On exam, alert, oriented x3. Pulse 103, blood pressure 123/60, respirations 16, temperature 97.2, pulse ox 98% on room air. HEENT: Conjunctivae normal. Pupils equal. NECK: Normal. CARDIOVASCULAR: S1 and S2 muffled. LUNGS: Breath sounds diminished at the bases. No rhonchi, no crackles. ABDOMEN: Soft, nontender. EXTREMITIES: Status post surgery. NERVOUS SYSTEM: Nonfocal. LABS: INR 2.6, hemoglobin is 10, potassium 3.2. ASSESSMENT: 1. Right hip comminuted intertrochanteric fracture, status post intertrochanteric hip screw placement as well as closed reduction. 2. Urinary tract infection with sepsis present on admission, septic shock with severe sepsis, possible Agrawal catheter induced urinary tract infection. 3. Change in mental status, metabolic encephalopathy. 4. History of dementia. 5. Hypokalemia. 6. Coumadin monitoring. 7. Elevated troponin, indeterminate. 8. Acute renal failure, possibly prerenal, with acute tubular necrosis. 9. Diabetes mellitus type 2. 10. Hypertension. 11. Chronic kidney disease, stage II. 12. Gastroesophageal reflux disease. 13. History of anxiety. 14. Moderate history of protein calorie malnutrition with a body mass index 18.1. 15. Gait dysfunction. 16. FULL CODE. RECOMMENDATIONS/DISCUSSION: Recommend to continue current medications, continue to monitor, symptomatic treatment. At this time I would recommend hold the Coumadin for potassium supplementation. Otherwise continue the rest of the medications. Monitor PT and INR closely. Closely follow. Follow up with orthopedic services. Further recommendations to follow.
[2016-11-09 09:41] LABS: INR 2.6 (<1.1); Prothrombin Time 24.9 sec (9.0-12.0)
--- NOTE | 2016-11-09 11:37 | P.DS ---
Providers Date of admission: 11/05/16 03:56 Expected date of discharge: 11/09/16 Attending physician: Danny Smith Primary care physician: Joel Silva - Discharge Diagnosis(es) (1) Intertrochanteric fracture of right hip Patient was admitted to the OR on 11/06/2016 for intertrochanteric nailing of a right intertrochanteric hip fracture that she suffered as a result of a fall. She underwent the procedure which she tolerated well without complication. Her postoperative hospital course has remained without complication. On day of discharge she is afebrile, vital signs stable, labs within acceptable ranges, wounds are benign, neurovascular status is intact, calf is soft and nontender, abdomen is soft nontender, perfusion to the lower extremity and toes is intact, she is denying any new complaints, pain is controlled. Review of systems is negative for fever, chills, chest pain, shortness breath, nausea, vomiting, dizziness, headaches, rashes, bleeding, swelling, slurred speech or other. Current Visit: Yes Status: Acute Priority: Medium Patient Condition at Discharge: Stable Plan - Discharge Summary New Discharge Prescriptions: Docusate [Colace] 100 mg PO BID #60 capsule HYDROcodone/APAP 5-325MG [Alto 5-325] 1 tab PO Q4HR PRN #60 tab PRN Reason: Pain Discharge Medication List Gabapentin [Neurontin] 100 mg PO HS 08/01/14 [History] Hydroxychloroquine Sulfate [Plaquenil] 200 mg PO BID 08/01/14 [History] Methotrexate Sodium [Methotrexate] 17.5 mg PO WE 08/01/14 [History] Pravastatin Sodium [Pravachol] 20 mg PO HS 08/01/14 [History] amLODIPine BESYLATE [Norvasc] 5 mg PO DAILY 08/01/14 [History] Cholecalciferol [Vitamin D3] 2,000 unit PO BID 11/05/16 [History] Famotidine [Pepcid AC] 10 mg PO BID 11/05/16 [History] Folic Acid 1 mg PO DAILY 11/05/16 [History] Krill Oil 800 mg PO BID 11/05/16 [History] buPROPion XL [Wellbutrin Xl] 150 mg PO DAILY 11/05/16 [History] traMADol HCL [Ultram] 50 mg PO DAILY PRN 11/05/16 [History] Docusate [Colace] 100 mg PO BID #60 capsule 11/09/16 [Rx] HYDROcodone/APAP 5-325MG [Alto 5-325] 1 tab PO Q4HR PRN #60 tab 11/09/16 [Rx] Follow up Appointment(s)/Referral(s): Haily Garcia DO [Doctor of Osteopathic Medicine] - 10 Days Joel Silva MD [Primary Care Provider] - 1-2 days Marcelino Beltran [NON-STAFF] - Activity/Diet/Wound Care/Special Instructions: Touchdown weightbearing Take meds as directed Follow-up with Dr. Garcia in office Keep wound clean and dry Discharge Disposition: TRANSFER TO SNF/ECF
[2016-11-09] MEDS: FOLIC ACID 1 MG TAB PO SCH (12:33)
[2016-11-09] MEDS: LEVOFLOXACIN 250MG-D5W PMX 250 MG in DEXTROSE/WATER 1 50ML.BAG IVPB SCH (14:09)
--- NOTE | 2016-11-10 11:40 | PN ---
DATE OF SERVICE: This 76-year-old woman was admitted after surgery, also had UTI with sepsis. No chest pain or palpitations. No fever. The patient has been slated to go to [facility], [facility] at this time. On exam, alert and oriented x3. Pulse 88, blood pressure 126/86, respirations 14, temperature 98.4, pulse ox 99% on room air. PAST MEDICAL HISTORY: Reviewed. REVIEW OF SYSTEMS: CARDIOVASCULAR: No angina, palpitations. RESPIRATORY: As mentioned earlier. GI: As mentioned earlier. : No dysuria. NERVOUS: No numbness or weakness. Current medications are reviewed, include: 1. [place]. 2. Norvasc. 3. Wellbutrin. 4. Vitamin D3. 5. Valium. 6. Pepcid. 7. Folic acid. 8. Neurontin. 9. Omeprazole. 10. Lactated Ringer's. 11. Morphine. 12. Narcan p.r.n. PHYSICAL EXAM: Alert and oriented x3. HEENT: Conjunctivae normal. Oral mucosa moist. Neck is no jugular venous distension. No carotid bruits. CARDIOVASCULAR: S1 and S2 muffled. No S3. No S4. RESPIRATORY: Breath sounds diminished at the bases. No rhonchi. No crackles. ABDOMEN: Soft, nontender. No mass palpable. LEGS: Status post surgery. NERVOUS SYSTEM: Higher functions mentioned earlier. Moves all 4 limbs. No focal motor deficits. LYMPHATIC: No lymph nodes palpable in neck, axillae or groin. LABS: INR is 2.6, hemoglobin is 9. ASSESSMENT: 1. Status post right intertrochanteric hip fracture, status post intertrochanteric hip screw placement as well as closed reduction. 2. Urinary tract infection with sepsis, present on admission with septic shock, with severe sepsis, possibly folic acid-induced urinary tract infection. 3. Change in mental status, metabolic encephalopathy. 4. History of dementia. 5. Hypokalemia. 6. Coumadin monitoring. 7. Elevated troponin, indeterminate. 8. Acute renal failure, possible prerenal, with acute tubular necrosis. 9. Diabetes mellitus type 2. 10. Hypertension. 11. Chronic kidney disease stage 2. 12. Gastroesophageal reflux disease. 13. History of anxiety. 14. History of moderate to severe protein-calorie malnutrition with a body mass index of 18.1. 15. Gait dysfunction. 16. FULL CODE. RECOMMENDATIONS AND DISCUSSION: Recommend to continue current medications. Continue symptomatic treatment. I would also recommend the following medications from medical point of view. Follow up with Dr. Silva in 2 to 3 days after ECF. Follow up with Dr. Armstrong and Dr. Bynum in [facility]. Medications from medical standpoint of view are: 1. Krill oil 800 mg b.i.d. 2. Ceftin 500 mg p.o. b.i.d. 3. Vitamin D3 2000 p.o. b.i.d. 4. Colace 200 mg p.o. b.i.d. 5. Pepcid AC 10 mg p.o. b.i.d. 6. Folic acid 1 mg p.o. daily. 7. Neurontin 100 mg at bedtime. 8. Hydrocodone 5 mg q.4 p.r.n. 9. Plaquenil 200 mg p.o. b.i.d. 10. Methotrexate 17.5 mg. 11. Pravachol 20 mg q.h.s. 12. Coumadin 2.5 mg daily and monitor PT/INR closely. 13. Norvasc 5 mg p.o. daily 15. Ultram 50 mg q.3 p.r.n. 16. The rest of the medications per Orthopedic Surgery recommendations. MTDD
[2016-11-11] MEDS ORDERED: METHOTREXATE SODIUM 2.5 MG TAB PO SCH (09:00)
== END 2016-11-09 14:59 | DRG 480 ==
LOC: EC 02:40 → 3SUR 03:56
PROVIDERS: ADMIT Orthopaedic Surgery; ATTEND Orthopaedic Surgery
PROC: 0QS636Z Reposition Right Upper Femur with Intramedullary Internal Fixation Device, Percutaneous Approach (ICD-10-PCS; principal; 2016-11-06 09:30)
DX: S72.141A Displaced intertrochanteric fracture of right femur, initial encounter for closed fracture (principal); R65.21 Severe sepsis with septic shock; N17.0 Acute kidney failure with tubular necrosis; E43 Unspecified severe protein-calorie malnutrition; A41.9 Sepsis, unspecified organism; G93.41 Metabolic encephalopathy; E87.4 Mixed disorder of acid-base balance; N39.0 Urinary tract infection, site not specified; Z68.1 Body mass index [BMI] 19.9 or less, adult; T83.511A Infection and inflammatory reaction due to indwelling urethral catheter, initial encounter; I35.0 Nonrheumatic aortic (valve) stenosis; G30.9 Alzheimer's disease, unspecified; F02.80 Dementia in other diseases classified elsewhere, unspecified severity, without behavioral disturbance, psychotic disturbance, mood disturbance, and anxiety; Z93.1 Gastrostomy status; I12.9 Hypertensive chronic kidney disease with stage 1 through stage 4 chronic kidney disease, or unspecified chronic kidney disease; F32.9 Major depressive disorder, single episode, unspecified; E78.5 Hyperlipidemia, unspecified; K21.9 Gastro-esophageal reflux disease without esophagitis; N18.2 Chronic kidney disease, stage 2 (mild); F17.200 Nicotine dependence, unspecified, uncomplicated; F41.1 Generalized anxiety disorder; R26.9 Unspecified abnormalities of gait and mobility; E11.22 Type 2 diabetes mellitus with diabetic chronic kidney disease; E87.6 Hypokalemia; W19.XXXA Unspecified fall, initial encounter; Z79.899 Other long term (current) drug therapy; Y84.6 Urinary catheterization as the cause of abnormal reaction of the patient, or of later complication, without mention of misadventure at the time of the procedure; Y92.002 Bathroom of unspecified non-institutional (private) residence as the place of occurrence of the external cause
CPT/HCPCS: 36415; 71010; 73502; 80048; 80053; 81001; 85025; 85610; 85730; 86850; 86900; 86901; 87086; 88304; 93005; 99285

== ENCOUNTER → 2016-12-21 | Outpatient (CLI) | payer MEDICARE, BC ==
--- NOTE | 2016-12-21 13:36 | CT ---
EXAMINATION TYPE: CT brain wo con DATE OF EXAM: 12/21/2016 12:52 PM COMPARISON: NONE HISTORY: Change in mental status. Dementia. CT DLP: 978.20 mGycm Automated exposure control for dose reduction was used. FINDINGS: There is no acute intracranial hemorrhage, mass effect, or midline shift identified. The ventricles and sulci are within normal limits in size for patient's age, there is cortical atrophy. White matter demyelination present in the periventricular locations, low attenuation present within the basal bora glia could represent lacunar infarct of indeterminate age on the right. The globes are intact and th e visualized sinuses are clear. IMPRESSION: White matter demyelination, findings suggest chronic small vessel ischemia, brain MRI may be of benef it. Age-related atrophy.
== END | disposition home or self-care (01) ==
LOC: RADCTMAIN 12:12
PROVIDERS: ATTEND Family Medicine
DX: G31.1 Senile degeneration of brain, not elsewhere classified (principal); G37.8 Other specified demyelinating diseases of central nervous system
CPT/HCPCS: 70450

== ENCOUNTER → 2017-07-27 | Outpatient (CLI) | payer MEDICARE, BC ==
[2017-07-27 10:50] LABS: Anisocytosis Moderate; CH 27.3; CHCM 31.5; HCT 34.1 % (34.0-46.0); HDW 2.45; HGB 10.7 gm/dL (11.4-16.0); Hypochromasia Slight; MCH 27.3 pg (25.0-35.0); MCHC 31.3 g/dL (31.0-37.0); MCV 87.1 fL (80.0-100.0); Mean Platelet Volume 7.5; RBC 3.92 m/uL (3.80-5.40); RDW 20.2 % (11.5-15.5); WBC 10.3 k/uL (3.8-10.6)
[2017-07-27 11:03] LABS: ALT 24 U/L (9-52); AST 18 U/L (14-36); Alkaline Phosphatase 64 U/L (38-126); Anion Gap 12 mmol/L; Blood Urea Nitrogen 17 mg/dL (7-17); C Reactive Protein 14.3 mg/L (<10.0); Calcium 9.2 mg/dL (8.4-10.2); Carbon Dioxide 23 mmol/L (22-30); Chloride 102 mmol/L (98-107); Glucose 88 mg/dL (74-99); Non-African American GFR(MDRD) >60 (>60 ml/min/1.73 sqM); Potassium 4.3 mmol/L (3.5-5.1); Sodium 137 mmol/L (137-145); Total Bilirubin 0.3 mg/dL (0.2-1.3); Total Protein 6.6 g/dL (6.3-8.2)
[2017-07-27 11:04] LABS: Rheumatoid Factor, Qnt 23 IU/mL (<12)
--- NOTE | 2017-07-27 11:26 | XR ---
EXAMINATION TYPE: XR shoulder complete LT DATE OF EXAM: 07/27/2017 COMPARISON: NONE HISTORY: Pain TECHNIQUE: Three views are submitted. FINDINGS: The osseous structures are intact. There is no acute fracture or dislocation. There is a high riding humeral head relative to the glenoid with severe arthropathy of the AC joint. Apical lung pleural th ickening noted with suspected tiny left upper lobe granuloma. There is diffuse osteopenia IMPRESSION: 1. Severe AC joint arthropathy with suspected chronic rotator cuff tear. Correlate clinically.
[2017-07-27 12:27] LABS: Erythrocyte Sedimentation Rate 35 mm/hr (0-20)
== END | disposition home or self-care (01) ==
LOC: LABWHC1 10:20
PROVIDERS: ATTEND Internal Medicine Infectious Disease
DX: M86.8X8 Other osteomyelitis, other site (principal)
CPT/HCPCS: 36415; 80053; 84134; 85027; 85652; 86140; 86431

== ENCOUNTER → 2017-08-09 | Outpatient (CLI) | payer MEDICARE, BC ==
--- NOTE | 2017-08-09 20:15 | MR ---
EXAMINATION TYPE: MR shoulder LT wo con DATE OF EXAM: 08/09/2017 COMPARISON: NONE HISTORY: 77-year-old female with pain and soft tissue wound, evaluate for osteomyelitis lt shoulder TECHNIQUE: Multiplanar, multisequence imaging of the left shoulder is performed without contrast. IV contrast could not be administered as venous access could not be secured. FINDINGS: Note that IV contrast was not administered as venous access could not be secured. There is a soft tissue wound along the posterolateral aspect of the superior shoulder just overlying the posterior greater tuberosity and lateral to the acromion. No underlying focal bone marrow edema o r bone marrow replacement on T1 sequence. Extensive soft tissue swelling is present throughout the subcutaneous fat and rotator cuff musculatur e. Mild effusion within the subacromial/subdeltoid bursa. There is massive rotator cuff tear with complete tears of both supraspinatus and infraspinatus tendon s and moderate to severe muscle atrophy. Additional moderate atrophy of the subscapularis muscle martínez y with only a few inferior most fibers remaining attached. There is joint instability with high riding humeral head abutting the undersurface of the acromion wh ere some mild cortical irregularity and mild marrow edema is present. No periarticular bone marrow edema. A small joint effusion is present. The glenoid labrum is diffusely torn. Long head biceps tendon not visualized and probably torn as wel l. Moderate irregular cartilage loss within the glenohumeral joint, more severe cartilage loss along the superior glenoid. IMPRESSION: 1. Note that contrast could not be administered as IV access could not be secured. 2. Soft tissue wound along the posterolateral aspect of the superior shoulder. There is an underlying mild subacromial/subdeltoid bursal effusion which is probably reactive. While there is extensive sof t tissue swelling at the shoulder, the relatively small size of the effusion argues against infected fluid at this time. Consider close follow-up by ultrasound and if the effusion is increasing or shows a suspicious appearance, fluid aspiration can be performed. 3. No evidence for underlying osteomyelitis. 4. Massive rotator cuff tears. Most of the subscapularis tendon is also torn. Moderate to severe rota tor cuff muscle atrophy. The long head biceps tendon is also not seen and probably torn. 5. Secondary shoulder instability, rotator cuff arthropathy, and some mild stress reaction to the und ersurface of the acromion from bony abutment.
== END | disposition home or self-care (01) ==
LOC: RADMRIMAIN 09:17
PROVIDERS: ATTEND Internal Medicine Infectious Disease
DX: S41.002A Unspecified open wound of left shoulder, initial encounter (principal); M79.89 Other specified soft tissue disorders; M75.102 Unspecified rotator cuff tear or rupture of left shoulder, not specified as traumatic; M62.58 Muscle wasting and atrophy, not elsewhere classified, other site; M25.312 Other instability, left shoulder; M12.812 Other specific arthropathies, not elsewhere classified, left shoulder

== ENCOUNTER → 2018-08-02 | Outpatient (CLI) | payer MEDICARE, BC ==
--- NOTE | 2018-08-02 12:08 | FL ---
EXAMINATION TYPE: FL barium swallow w video DATE OF EXAM: 08/02/2018 MODIFIED SWALLOW / DEGLUTITION STUDY CLINICAL HISTORY: Anorexia per order. TECHNIQUE: Deglutition study is performed utilizing thin liquid barium, honey and nectar thick liqui d barium, barium thick pudding, and barium coated cracker. A total of 2 minutes 33 seconds of fluoros copic time was utilized during procedure. Serial spot images are saved to PACS. COMPARISON: None. FINDINGS: Patient is noted somewhat contracted. The oral and pharyngeal phases show satisfactory init iation and propagation with all modalities tested. Satisfactory mastication is seen with solid modali ties tested. There is no evidence of penetration or aspiration with any modality tested. Mild to mod erate pharyngeal residue was appreciated with more viscous modalities. Note is made of grade 1 david listhesis of C4 on C5 during study. IMPRESSION: No penetration or aspiration observed. Please refer to speech therapist notes for furthe r details if necessary.
== END ==
LOC: RADFLMAIN 11:06
PROVIDERS: ATTEND Family Medicine
DX: R63.0 Anorexia (principal)
CPT/HCPCS: 74230

== ENCOUNTER 2018-09-01 08:33 | Inpatient (IN) | payer MEDICARE, BC ==
[2018-09-01] MEDS ORDERED: IPRATROPIUM-ALBUTEROL 3 ML NEB INHALATION STA (08:55)
--- NOTE | 2018-09-01 09:06 | ED ---
SOB HPI <Simone Delgado - Last Filed: 09/01/18 11:09> - General Source: patient, family, RN notes reviewed Mode of arrival: wheelchair Limitations: no limitations <Froy Sawyer - Last Filed: 09/01/18 11:15> - General Chief Complaint: Shortness of Breath Stated Complaint: diff breathing Time Seen by Provider: 09/01/18 08:50 - History of Present Illness Initial Comments: 78-year-old female sent emergency Department chief complaint of shortness of breath. Patient history is primarily given by caregiver and . Patient has severe underlying dementia, chronic wounds. Patient has been short of breath for the last week was seen by visiting decisions and was placed on Lasix those symptoms worsened overnight and they brought her here. Patient does not have any known lung disease no COPD or asthma. States that she's been crackling on her left lung per caregiver and visiting physicians. [place] that she had a pleural effusion. They deny any leg swelling. No fever no chills no URI symptoms. (Froy Sawyer) - Related Data Home Medications Medication Instructions Recorded Confirmed Hydroxychloroquine Sulfate 200 mg PO DAILY 08/01/14 09/01/18 [Plaquenil] amLODIPine BESYLATE [Norvasc] 5 mg PO DAILY 08/01/14 09/01/18 Folic Acid 1 mg PO DAILY 11/05/16 09/01/18 Citalopram Hydrobromide 20 mg PO DAILY 06/30/17 09/01/18 [Citalopram HBr] Cyanocobalamin (Vitamin B-12) 10,000 mcg PO DAILY 06/30/17 09/01/18 [Vitamin B12] Ferrous Sulfate [Feosol] 325 mg PO DAILY 06/30/17 09/01/18 Megestrol [Megace] 400 mg PO DAILY 06/30/17 09/01/18 Levothyroxine Sodium [Synthroid] 100 mcg PO DAILY 08/09/17 09/01/18 Gabapentin [Neurontin] 100 mg PO TID 12/27/17 09/01/18 Cholecalciferol [Vitamin D3] 5,000 unit PO FR 09/01/18 09/01/18 Donepezil [Aricept] 10 mg PO HS 09/01/18 09/01/18 Famotidine [Pepcid] 10 mg PO DAILY 09/01/18 09/01/18 LORazepam [Ativan] 0.5 mg PO BID PRN 09/01/18 09/01/18 Midnite 1 tab PO HS 09/01/18 09/01/18 Naproxen 500 mg PO BID 09/01/18 09/01/18 Previous Rx's Medication Instructions Recorded Cephalexin [Keflex] 500 mg PO Q8HR #90 cap 07/28/18 Allergies Allergy/AdvReac Type Severity Reaction Status Date / Time No Known Allergies Allergy Verified 09/01/18 10:25 Review of Systems ROS Other: All systems not noted in ROS Statement are negative. <Simone Delgado - Last Filed: 09/01/18 11:09> ROS Other: All systems not noted in ROS Statement are negative. <Froy Sawyer - Last Filed: 09/01/18 11:15> ROS Statement: Those systems with pertinent positive or pertinent negative responses have been documented in the HPI. Past Medical History Past Medical History: Dementia, Hyperlipidemia, Rheumatoid Arthritis (RA) Additional Past Medical History / Comment(s): lt. shoulder wound History of Any Multi-Drug Resistant Organisms: None Reported Past Surgical History: Tubal Ligation Additional Past Surgical History / Comment(s): October [address] Espinal Past Anesthesia/Blood Transfusion Reactions: No Reported Reaction Past Psychological History: Depression Smoking Status: Former smoker Past Alcohol Use History: None Reported Past Drug Use History: None Reported - Past Family History Father Family Medical History: No Reported History Mother Family Medical History: Hyperlipidemia <Froy Sawyer - Last Filed: 09/01/18 11:15> General Exam Limitations: no limitations General appearance: alert, in no apparent distress, cachectic Head exam: Present: atraumatic, normocephalic, normal inspection Eye exam: Present: normal appearance, PERRL, EOMI. Absent: scleral icterus, conjunctival injection, periorbital swelling ENT exam: Present: normal exam, normal oropharynx, mucous membranes moist Neck exam: Present: normal inspection, full ROM. Absent: tenderness, meningismus, lymphadenopathy Respiratory exam: Present: rales (Left lower). Absent: normal lung sounds bilaterally, respiratory distress, wheezes, rhonchi, stridor Cardiovascular Exam: Present: regular rate, normal rhythm, normal heart sounds. Absent: systolic murmur, diastolic murmur, rubs, gallop, clicks Extremities exam: Absent: pedal edema Neurological exam: Present: alert. Absent: oriented X3 Skin exam: Present: warm, dry, intact, normal color. Absent: rash <Froy Sawyer - Last Filed: 09/01/18 11:15> Vital Signs 09/01/18 09/01/18 09/01/18 08:38 08:42 09:12 Temperature 97.8 F Pulse Rate 78 Respiratory 20 22 Rate Blood Pressure 125/65 O2 Sat by Pulse 87 L Oximetry 09/01/18 09/01/18 09/01/18 09:20 09:28 09:32 Temperature Pulse Rate 75 80 Respiratory Rate Blood Pressure O2 Sat by Pulse 90 L Oximetry Medical Decision Making - Lab Data Result diagrams: 09/01/18 09:58 09/01/18 09:58 <Simone Delgado - Last Filed: 09/01/18 11:09> - Lab Data Result diagrams: 09/01/18 09:58 09/01/18 09:58 <Froy Sawyer - Last Filed: 09/01/18 11:15> - Medical Decision Making Patient does meet severe sepsis criteria. Patient and family updated on results and plan. Chest x-ray reviewed. Labs reviewed. Case discussed in detail with Dr. Rodriguez, who will admit for visiting physicians. Lactic acid and blood culture has been ordered. IV antibiotics have been ordered. (Simone Delgado) - Lab Data Lab Results 09/01/18 09/01/18 09/01/18 Range/Units 09:58 09:58 09:58 WBC 29.8 H (3.8-10.6) k/uL RBC 3.42 L (3.80-5.40) m/uL Hgb 8.0 L (11.4-16.0) gm/dL Hct 27.5 L (34.0-46.0) % MCV 80.4 (80.0-100.0) fL MCH 23.5 L (25.0-35.0) pg MCHC 29.3 L (31.0-37.0) g/dL RDW 16.2 H (11.5-15.5) % Plt Count 327 (150-450) k/uL Neutrophils % 90 % Lymphocytes % 5 % Monocytes % 3 % Eosinophils % 0 % Basophils % 1 % Neutrophils # 26.8 H (1.3-7.7) k/uL Lymphocytes # 1.6 (1.0-4.8) k/uL Monocytes # 1.0 (0-1.0) k/uL Eosinophils # 0.1 (0-0.7) k/uL Basophils # 0.2 (0-0.2) k/uL Hypochromasia Marked Anisocytosis Slight PT 10.4 (9.0-12.0) sec INR 1.1 (<1.2) APTT 25.7 (22.0-30.0) sec Sodium 138 (137-145) mmol/L Potassium 4.7 (3.5-5.1) mmol/L Chloride 107 (98-107) mmol/L Carbon Dioxide 18 L (22-30) mmol/L Anion Gap 13 mmol/L BUN 41 H (7-17) mg/dL Creatinine 0.99 (0.52-1.04) mg/dL Est GFR (CKD-EPI)AfAm 62 (>60 ml/min/1.73 sqM) Est GFR (CKD-EPI)NonAf 54 (>60 ml/min/1.73 sqM) Glucose 111 H (74-99) mg/dL Plasma Lactic Acid Ross (0.7-2.0) mmol/L Calcium 9.3 (8.4-10.2) mg/dL Magnesium 2.0 (1.6-2.3) mg/dL Total Bilirubin 0.5 (0.2-1.3) mg/dL AST 20 (14-36) U/L ALT 19 (9-52) U/L Alkaline Phosphatase 61 (38-126) U/L Total Creatine Kinase (30-135) U/L CK-MB (CK-2) (0.0-2.4) ng/mL CK-MB (CK-2) Rel Index Troponin I (0.000-0.034) ng/mL NT-Pro-B Natriuret Pep pg/mL Total Protein 6.4 (6.3-8.2) g/dL Albumin 3.6 (3.5-5.0) g/dL 09/01/18 09/01/18 09/01/18 Range/Units 09:58 09:58 09:58 WBC (3.8-10.6) k/uL RBC (3.80-5.40) m/uL Hgb (11.4-16.0) gm/dL Hct (34.0-46.0) % MCV (80.0-100.0) fL MCH (25.0-35.0) pg MCHC (31.0-37.0) g/dL RDW (11.5-15.5) % Plt Count (150-450) k/uL Neutrophils % % Lymphocytes % % Monocytes % % Eosinophils % % Basophils % % Neutrophils # (1.3-7.7) k/uL Lymphocytes # (1.0-4.8) k/uL Monocytes # (0-1.0) k/uL Eosinophils # (0-0.7) k/uL Basophils # (0-0.2) k/uL Hypochromasia Anisocytosis PT (9.0-12.0) sec INR (<1.2) APTT (22.0-30.0) sec Sodium (137-145) mmol/L Potassium (3.5-5.1) mmol/L Chloride (98-107) mmol/L Carbon Dioxide (22-30) mmol/L Anion Gap mmol/L BUN (7-17) mg/dL Creatinine (0.52-1.04) mg/dL Est GFR (CKD-EPI)AfAm (>60 ml/min/1.73 sqM) Est GFR (CKD-EPI)NonAf (>60 ml/min/1.73 sqM) Glucose (74-99) mg/dL Plasma Lactic Acid Ross 3.0 H* (0.7-2.0) mmol/L Calcium (8.4-10.2) mg/dL Magnesium (1.6-2.3) mg/dL Total Bilirubin (0.2-1.3) mg/dL AST (14-36) U/L ALT (9-52) U/L Alkaline Phosphatase (38-126) U/L Total Creatine Kinase 39 (30-135) U/L CK-MB (CK-2) 2.5 H (0.0-2.4) ng/mL CK-MB (CK-2) Rel Index 6.4 Troponin I 0.015 (0.000-0.034) ng/mL NT-Pro-B Natriuret Pep 8980 pg/mL Total Protein (6.3-8.2) g/dL Albumin (3.5-5.0) g/dL Disposition <Simone Delgado - Last Filed: 09/01/18 11:09> <Froy Sawyer - Last Filed: 09/01/18 11:15> Clinical Impression: Pneumonia, Leukocytosis, Dementia, Sepsis Disposition: ADMITTED IP TO THIS HOSP Condition: Fair Referrals: Nonstaff,Physician [REFERRING] - 1-2 days
[2018-09-01 10:22] LABS: Anisocytosis Slight; Basophils # (A) 0.2 k/uL (0-0.2); Basophils % (A) 1 %; Eosinophils # (A) 0.1 k/uL (0-0.7); Eosinophils % (A) 0 %; HCT 27.5 % (34.0-46.0); Hypochromasia Marked; Lymphocytes # (A) 1.6 k/uL (1.0-4.8); Lymphocytes % (A) 5 %; MCH 23.5 pg (25.0-35.0); MCHC 29.3 g/dL (31.0-37.0); MCV 80.4 fL (80.0-100.0); Mean Platelet Volume 6.9; Monocytes % (A) 3 %; Neutrophils # (A) 26.8 k/uL (1.3-7.7); Neutrophils % (A) 90 %; Platelet Count 327 k/uL (150-450); RBC 3.42 m/uL (3.80-5.40); RDW 16.2 % (11.5-15.5); WBC 29.8 k/uL (3.8-10.6)
--- NOTE | 2018-09-01 10:31 | XR ---
EXAMINATION TYPE: XR chest 2V DATE OF EXAM: 09/01/2018 COMPARISON: Prior exam 11/05/2016 HISTORY: Difficulty breathing TECHNIQUE: Frontal and lateral views of the chest are obtained. FINDINGS: Airspace has developed in the interval in the perihilar region, right lower lobe. Patient is rotated. There are overlying cardiac leads. Heart is stable. Aorta is dense and possibly ectatic. Biapical pleural thickening is again noted. Possible perihilar density on the left additionally. IMPRESSION: Correlate for pneumonia. Follow-up is recommended. Technique somewhat limited.
[2018-09-01 10:32] LABS: INR 1.1 (<1.2); Partial Thromboplastin Time 25.7 sec (22.0-30.0); Prothrombin Time 10.4 sec (9.0-12.0)
[2018-09-01] MEDS ORDERED: LEVOFLOXACIN 750MG-D5W PMX 750 MG in DEXTROSE/WATER 1 150ML.BAG IVPB STA (10:41)
[2018-09-01 10:51] LABS: Albumin 3.6 g/dL (3.5-5.0); Calcium 9.3 mg/dL (8.4-10.2); Potassium 4.7 mmol/L (3.5-5.1); Total Bilirubin 0.5 mg/dL (0.2-1.3); Total Protein 6.4 g/dL (6.3-8.2)
[2018-09-01] MEDS ORDERED: PNEUMONIA PROTOCOL UTILIZED 1 EACH MISC PO PRN (10:54)
[2018-09-01] MEDS ORDERED: SODIUM CHLORIDE 0.9% 1,000 ML IV ONE (11:01)
[2018-09-01 11:06] LABS: Creatine Kinase MB 2.5 ng/mL (0.0-2.4); Troponin I 0.015 ng/mL (0.000-0.034)
[2018-09-01] MEDS: SODIUM CHLORIDE 0.9% 1,000 ML IV SCH (11:27)
[2018-09-01] MEDS: IPRATROPIUM-ALBUTEROL 3 ML NEB INHALATION SCH ×3 (16:59→23:33)
[2018-09-01] MEDS ORDERED: ACETAMINOPHEN IV (For NPO) 1,000 MG in EMPTY BAG 1 BAG IVPB STA (18:08)
[2018-09-01 20:08] LABS: Glucose,Whole Blood 99 mg/dL (75-99)
[2018-09-02] MEDS: IPRATROPIUM-ALBUTEROL 3 ML NEB INHALATION SCH ×6 (03:26→23:31)
[2018-09-02 06:31] LABS: Anisocytosis Slight; Basophils # (A) 0.1 k/uL (0-0.2); Basophils % (A) 0 %; Eosinophils # (A) 0.2 k/uL (0-0.7); Eosinophils % (A) 1 %; HCT 23.9 % (34.0-46.0); Hypochromasia Marked; Lymphocytes % (A) 3 %; MCH 23.4 pg (25.0-35.0); MCHC 29.1 g/dL (31.0-37.0); MCV 80.5 fL (80.0-100.0); Mean Platelet Volume 7.1; Monocytes # (A) 0.9 k/uL (0-1.0); Monocytes % (A) 3 %; Neutrophils % (A) 93 %; Platelet Count 293 k/uL (150-450); RBC 2.97 m/uL (3.80-5.40); RDW 16.6 % (11.5-15.5); WBC 32.2 k/uL (3.8-10.6)
[2018-09-02 06:44] LABS: Calcium 8.7 mg/dL (8.4-10.2); Potassium 4.4 mmol/L (3.5-5.1)
--- NOTE | 2018-09-02 08:16 | HP ---
HISTORY AND PHYSICAL DATE OF ADMISSION: 09/01/2018 DATE OF SERVICE: 09/01/2018 PRESENTING COMPLAINT: Short of breath, congested. HISTORY OF PRESENTING COMPLAINT: This patient was seen by me yesterday evening on 09/01/2018. Patient's chronic stable medical conditions include Alzheimer's dementia, hyperlipidemia, rheumatoid arthritis, left shoulder wound with the wound VAC being followed by Dr. Boyle, vitamin D deficiency, anemia, poor vision. Patient is cared for by her , nonambulatory. Patient started having short of breath, crackles in the chest, was seen by Visiting Physician, given some Lasix. Patient was brought into the ER, was discovered to have a fever of 100.9. Chest x-ray was suggestive of infiltrates. Patient was having audible expiratory crackles and was desaturating on nasal cannula. I ordered a BiPAP with setting of 10 and 5 and patient settled down with the same. Patient is started on IV antibiotics IV antibiotics in form of Levaquin. Other home medications were held because of high risk of aspiration. Patient is rather lethargic. Patient herself is not able to give any history. Review of systems unable to obtain. See above. The patient herself is with dementia, not able to give a history and also rather sick. PAST MEDICAL HISTORY: Alzheimer's dementia, hyperlipidemia, rheumatoid arthritis, hypothyroid, left shoulder, left elbow healed wound, vitamin D deficiency, anemia, medical debility, poor vision,. PAST SURGICAL HISTORY: Tubal ligation, ORIF of the right hip by Dr. Espinal, right hip nailing. PSYCH HISTORY: Depression. 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 Patient is nonambulatory. Patient smoked for 46 years, stopped in 2000, alcohol occasionally. FAMILY HISTORY: Not relevant to the presentation. HOME MEDICATIONS: 1. Celexa 20 mg at bedtime. 2. Pepcid 10 mg b.i.d. 3. Vitamin B12 one thousand mcg a day. 4. Megace 400 mg p.o. daily. 5. Norvasc 5 mg a day. 6. Naproxen 500 mg b.i.d. 7. 1 tablet p.o. q.h.s. 8. Synthroid 100 mcg a day. 9. Ativan 0.5 mg b.i.d. p.r.n. 10.Plaquenil 200 mg p.o. daily. 11.Neurontin 100 mg t.i.d. 12.Folic acid 1 mg p.o. daily. 13.Iron 325 p.o. daily. 14.Aricept 10 mg p.o. q.h.s. 15.Vitamin D3 five thousand units p.o. on Wednesday. 16.Keflex 500 mg q.8. ALLERGIES: None. PHYSICAL EXAMINATION: Temperature 100.9, pulse 82, respiration 22, blood pressure 125/85, pulse ox 93% on 3 L. GENERAL APPEARANCE: Thin built, BMI of 19.4, short of breath at rest with a BiPAP on the face. EYES: Pupils equal. Conjunctivae are pale. HEENT: External appearance of nose and ears normal, oral cavity dry. NECK: JVD unable to assess. Mass not palpable. RESPIRATORY: Effort increased. Accessory muscles are working. LUNGS: Diminished breath sounds, expiratory crackles, mild wheezing. CARDIOVASCULAR First and second sounds a =re2nd sounds normal. No edema. ABDOMEN: Soft, nontender. Liver and spleen not palpable. LYMPHATIC: No lymph node palpable in neck or axillae. PSYCHIATRY: Unable to assess. The patient is very short of breath. NEUROLOGICAL: Pupils are equal, no facial asymmetry. Does move her limbs. MUSCULOSKELETAL: Evidence of osteoarthritis multiple joints. Patient has got a wound VAC on the left shoulder, also musculoskeletal diffuse wasting of the muscles. INVESTIGATIONS: White count 29.8, hemoglobin 8, potassium 4.7, BUN 41, creatinine 0.99. Lactic acid 3.0. ProBNP 8 980. Chest x-ray film, personally reviewed by me shows infiltrates especially on the right side. EKG showing a possible EKG baseline not very clear, but appears to be sinus rhythm. ASSESSMENT: 1. Right lower lobe pneumonia, suspect gram-negative organism. Also possible aspiration, causing acute causing acute hypoxic respiratory failure, for which patient requiring a BiPAP. 2. Acute metabolic encephalopathy from above. 3. Acute sepsis from pneumonia. 4. Acute chronic obstructive pulmonary disease exacerbation in an ex-smoker. 5. Chronic medical debility. 6. Clinically mild to moderate protein-calorie malnutrition with low body mass index and wasting of muscles. 7. Moderate to severe cognitive impairment from advanced late onset Alzheimer's dementia. 8. Chronic rheumatoid arthritis. 9. Chronic left shoulder wound for which patient has a wound VAC in place. 10.Normocytic anemia, probably nutritional and from underlying rheumatoid arthritis. 11.Multiple wounds. Please see nursing notes for further documentation. 12.CODE STATUS: FULL CODE. PLAN: At this point patient is on IV Levaquin, Lovenox for DVT prophylaxis, DuoNeb. Will also add IV Solu-Medrol. The patient's Synthroid will be changed to IV form every 48 hours. Given a small frame and age, patient will be getting another hefty dose of the same. Will check patient's Free T4 and T3 tomorrow morning, because the patient is a high risk of aspiration. Currently, will put a patient on aspiration precautions even though patient's BNP is high, I doubt if patient is in congestive heart failure. I\n fact, requiring more fluids because of the septic condition. Consultation to Dr. Hernández from Pulmonary and Dr. Monge, Infectious Disease was made. I talked to the patient's over the phone. At this point, the patient's wishes the patient remain a full code I did upgrade him about patient's guarded prognosis and prognosis. Copy to visiting physician Dr. Alvarez. MMVICKYL / VENKATAN: [id number] /
[2018-09-02] MEDS: ENOXAPARIN 40 MG/0.4 ML SYRINGE SQ SCH (08:36)
[2018-09-02] MEDS: FAMOTIDINE 20 MG/2 ML VIAL IV SCH ×2 (08:36→21:24)
[2018-09-02] MEDS: SODIUM CHLORIDE 0.9% 1,000 ML IV SCH ×3 (08:45→18:04)
[2018-09-02] MEDS ORDERED: LEVOTHYROXINE IVP 100 MCG/5 ML VIAL IV SCH (09:00)
[2018-09-02 09:49] LABS: Glucose,Whole Blood 70 mg/dL (75-99)
--- NOTE | 2018-09-02 09:56 | P.CONS ---
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 Her last appointment was on Wednesday which time she underwent a primary event and wound VAC was placed to the left shoulder wound, patient is on chronic suppressive Keflex. Patient has underlying dementia but according to family can carry on conversation. and caregiver at the bedside. Caregiver states that she was treated for the past 2 weeks with Lasix by visiting physicians and had a chest x-ray done one and half weeks ago. Visiting physician was planning to come out yesterday and start antibiotics but patient was taken to the emergency center instead. Apparently, on Wednesday night, patient started having increased phlegm and difficulty breathing and when the caregiver arrived she knew the patient had to be brought in. In the ER, patient had temperature 100.9, pulse ox 87% on room air initial white count was 29.8 is now 32.2 with hemoglobin of 7 and platelet count of 293. GFR is 63. Initial lactic acid was 3 with a second repeat at 1. She is status post 1 L of IV fluids and was started on Levaquin 750 mg. She also received IV Tylenol and nebulizer treatments. Chest x-ray shows correlate for pneumonia. Blood cultures status received. Patient was initially admitted to the selective care unit but upon evaluation, requested that Dr. Hernández be contacted for transfer to ICU. Patient normally has a good appetite and has gained weight since April although she appears to be quite thin and cachectic. Patient is able to pivot and stand to transfer to wheelchair. She has home care in place 3 times a week as well as a caregiver. She has history of rheumatoid arthritis and currently only on Naprosyn. Agrawal catheter was placed in the ER. Patient has not required vasopressors. Review of Systems ROS unobtainable: due to mental status Past Medical History Past Medical History: Dementia, Hyperlipidemia, Rheumatoid Arthritis (RA), Thyroid Disorder Additional Past Medical History / Comment(s): lt. shoulder wound/ lt elbow/ heel. past fall w/ broken rt hip(sx), hx vit d deficiency, anemia. per spouse she is unable to see out of one of her eyes but not sure which one" History of Any Multi-Drug Resistant Organisms: None Reported Past Surgical History: Tubal Ligation Additional Past Surgical History / Comment(s): October [address] Espinal, colonoscopy, rt hip nailing Past Anesthesia/Blood Transfusion Reactions: No Reported Reaction Smoking Status: Former smoker Additional Past Alcohol Use History / Comment(s): Patient smoked briefly only many years ago. No history of illicit drug use or alcohol abuse. 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 She lives at home with her . There are no pets in the home. - Past Family History Father History Unknown: Yes Family Medical History: No Reported History Additional Family Medical History / Comment(s): in [facility] Mother Family Medical History: Hyperlipidemia, Osteoarthritis (OA) Additional Family Medical History / Comment(s): at age 92 Medications and Allergies Home Medications Medication Instructions Recorded Confirmed Type Hydroxychloroquine Sulfate 200 mg PO DAILY 08/01/14 09/01/18 History [Plaquenil] amLODIPine BESYLATE [Norvasc] 5 mg PO DAILY 08/01/14 09/01/18 History Folic Acid 1 mg PO DAILY 11/05/16 09/01/18 History Citalopram Hydrobromide 20 mg PO HS 06/30/17 09/01/18 History [Citalopram HBr] Cyanocobalamin (Vitamin B-12) 1,000 mcg PO DAILY 06/30/17 09/01/18 History [Vitamin B12] Ferrous Sulfate [Feosol] 325 mg PO DAILY 06/30/17 09/01/18 History Megestrol [Megace] 400 mg PO DAILY 06/30/17 09/01/18 History Levothyroxine Sodium [Synthroid] 100 mcg PO DAILY 08/09/17 09/01/18 History Gabapentin [Neurontin] 100 mg PO TID 12/27/17 09/01/18 History Cephalexin [Keflex] 500 mg PO Q8HR #90 cap 07/28/18 09/01/18 Rx Cholecalciferol [Vitamin D3] 5,000 unit PO FR 09/01/18 09/01/18 History Donepezil [Aricept] 10 mg PO HS 09/01/18 09/01/18 History Famotidine [Pepcid] 10 mg PO BID 09/01/18 09/01/18 History LORazepam [Ativan] 0.5 mg PO BID PRN 09/01/18 09/01/18 History Midnite 1 tab PO HS 09/01/18 09/01/18 History Naproxen 500 mg PO BID 09/01/18 09/01/18 History Allergies Allergy/AdvReac Type Severity Reaction Status Date / Time No Known Allergies Allergy Verified 09/01/18 10:25 Physical Exam Vitals: Vital Signs Temp Pulse Pulse Resp BP BP Pulse Ox 09/02/18 08:59 83 09/02/18 08:45 82 09/02/18 08:15 76 09/02/18 04:00 98.7 F 82 32 H 138/65 94 L 09/02/18 03:39 77 09/02/18 03:26 74 09/02/18 00:00 99.1 F 78 28 H 124/60 100 09/01/18 23:53 76 09/01/18 23:34 74 09/01/18 20:00 99.3 F 81 28 H 127/60 84 L 09/01/18 19:23 89 09/01/18 19:00 82 14 128/78 90 L 09/01/18 18:04 100.9 F H 82 22 125/85 93 L 09/01/18 15:55 82 16 118/56 98 09/01/18 12:00 74 20 130/71 90 L 09/01/18 11:23 97.9 F 78 18 130/71 90 L Intake and Output 09/01/18 09/02/18 09/02/18 22:59 06:59 14:59 Output Total 475 Balance -475 Output: Urine 475 Uretheral (Agrawal) 175 Other: Voiding Method Diaper Diaper # Voids 1 Weight 58 kg Gen: This is a thin 78-year-old female she is currently on BiPAP at FiO2 of 100 and appears to be dyspneic and weak with accessory muscle usage. HEENT: Head is atraumatic, normocephalic. Pupils equal, round. Sclerae is anicteric. Conjunctiva slightly pale. NECK: Supple. No lymphadenopathy. No thyromegaly. LUNGS: Inspiratory and expiratory rhonchi throughout positive accessory muscle usage and intercostal retractions. HEART: Regular rate and rhythm. No murmur. ABDOMEN: Soft. Bowel sounds are present. No masses. No tenderness. EXTREMITIES: No pedal edema. Dorsalis pedis +1 bilaterally. Small wound noted to the right heel and left lateral 5th metatarsal. NEUROLOGICAL: Patient is awake, she opens eyes to verbal stimuli. Generalized weakness. Results Results: Laboratory Results WBC 32.2 k/uL (3.8-10.6) H 09/02/18 06:14 RBC 2.97 m/uL (3.80-5.40) L 09/02/18 06:14 Hgb 7.0 gm/dL (11.4-16.0) L 09/02/18 06:14 Hct 23.9 % (34.0-46.0) L 09/02/18 06:14 MCV 80.5 fL (80.0-100.0) 09/02/18 06:14 MCH 23.4 pg (25.0-35.0) L 09/02/18 06:14 MCHC 29.1 g/dL (31.0-37.0) L 09/02/18 06:14 RDW 16.6 % (11.5-15.5) H 09/02/18 06:14 Plt Count 293 k/uL (150-450) 09/02/18 06:14 Neutrophils % 93 % 09/02/18 06:14 Lymphocytes % 3 % 09/02/18 06:14 Monocytes % 3 % 09/02/18 06:14 Eosinophils % 1 % 09/02/18 06:14 Basophils % 0 % 09/02/18 06:14 Neutrophils # 30.0 k/uL (1.3-7.7) H 09/02/18 06:14 Lymphocytes # 1.0 k/uL (1.0-4.8) 09/02/18 06:14 Monocytes # 0.9 k/uL (0-1.0) 09/02/18 06:14 Eosinophils # 0.2 k/uL (0-0.7) 09/02/18 06:14 Basophils # 0.1 k/uL (0-0.2) 09/02/18 06:14 Hypochromasia Marked 09/02/18 06:14 Anisocytosis Slight 09/02/18 06:14 PT 10.4 sec (9.0-12.0) 09/01/18 09:58 INR 1.1 (<1.2) 09/01/18 09:58 APTT 25.7 sec (22.0-30.0) 09/01/18 09:58 Sodium 142 mmol/L (137-145) 09/02/18 06:14 Potassium 4.4 mmol/L (3.5-5.1) 09/02/18 06:14 Chloride 115 mmol/L (98-107) H 09/02/18 06:14 Carbon Dioxide 17 mmol/L (22-30) L 09/02/18 06:14 Anion Gap 10 mmol/L 09/02/18 06:14 BUN 34 mg/dL (7-17) H 09/02/18 06:14 Creatinine 0.87 mg/dL (0.52-1.04) 09/02/18 06:14 Est GFR (CKD-EPI)AfAm 73 (>60 ml/min/1.73 sqM) 09/02/18 06:14 Est GFR (CKD-EPI)NonAf 63 (>60 ml/min/1.73 sqM) 09/02/18 06:14 Glucose 93 mg/dL (74-99) 09/02/18 06:14 POC Glucose (mg/dL) 70 mg/dL (75-99) L 09/02/18 09:41 POC Glu Segment Block Layer ID Marlen Prieto 09/02/18 09:41 Lactic Ac Sepsis Rflx Y 09/01/18 11:01 Plasma Lactic Acid Ross 1.0 mmol/L (0.7-2.0) 09/02/18 06:14 Calcium 8.7 mg/dL (8.4-10.2) 09/02/18 06:14 Magnesium 2.0 mg/dL (1.6-2.3) 09/01/18 09:58 Total Bilirubin 0.5 mg/dL (0.2-1.3) 09/01/18 09:58 AST 20 U/L (14-36) 09/01/18 09:58 ALT 19 U/L (9-52) 09/01/18 09:58 Alkaline Phosphatase 61 U/L (38-126) 09/01/18 09:58 Total Creatine Kinase 39 U/L (30-135) 09/01/18 09:58 CK-MB (CK-2) 2.5 ng/mL (0.0-2.4) H 09/01/18 09:58 CK-MB (CK-2) Rel Index 6.4 09/01/18 09:58 Troponin I 0.015 ng/mL (0.000-0.034) 09/01/18 09:58 NT-Pro-B Natriuret Pep 8980 pg/mL 09/01/18 09:58 Total Protein 6.4 g/dL (6.3-8.2) 09/01/18 09:58 Albumin 3.6 g/dL (3.5-5.0) 09/01/18 09:58 TSH 1.810 mIU/L (0.465-4.680) 09/02/18 06:14 CBC & Chem 7: 09/03/18 04:48 09/03/18 04:48 Labs: Abnormal Lab Results - Last 24 Hours (Table) 09/01/18 09/01/18 09/01/18 Range/Units 09:58 09:58 09:58 WBC 29.8 H (3.8-10.6) k/uL RBC 3.42 L (3.80-5.40) m/uL Hgb 8.0 L (11.4-16.0) gm/dL Hct 27.5 L (34.0-46.0) % MCH 23.5 L (25.0-35.0) pg MCHC 29.3 L (31.0-37.0) g/dL RDW 16.2 H (11.5-15.5) % Neutrophils # 26.8 H (1.3-7.7) k/uL Chloride (98-107) mmol/L Carbon Dioxide 18 L (22-30) mmol/L BUN 41 H (7-17) mg/dL Glucose 111 H (74-99) mg/dL Plasma Lactic Acid Ross 3.0 H* (0.7-2.0) mmol/L CK-MB (CK-2) (0.0-2.4) ng/mL 09/01/18 09/01/18 09/02/18 Range/Units 09:58 15:14 06:14 WBC 32.2 H (3.8-10.6) k/uL RBC 2.97 L (3.80-5.40) m/uL Hgb 7.0 L (11.4-16.0) gm/dL Hct 23.9 L (34.0-46.0) % MCH 23.4 L (25.0-35.0) pg MCHC 29.1 L (31.0-37.0) g/dL RDW 16.6 H (11.5-15.5) % Neutrophils # 30.0 H (1.3-7.7) k/uL Chloride (98-107) mmol/L Carbon Dioxide (22-30) mmol/L BUN (7-17) mg/dL Glucose (74-99) mg/dL Plasma Lactic Acid Ross 2.4 H* (0.7-2.0) mmol/L CK-MB (CK-2) 2.5 H (0.0-2.4) ng/mL 09/02/18 Range/Units 06:14 WBC (3.8-10.6) k/uL RBC (3.80-5.40) m/uL Hgb (11.4-16.0) gm/dL Hct (34.0-46.0) % MCH (25.0-35.0) pg MCHC (31.0-37.0) g/dL RDW (11.5-15.5) % Neutrophils # (1.3-7.7) k/uL Chloride 115 H (98-107) mmol/L Carbon Dioxide 17 L (22-30) mmol/L BUN 34 H (7-17) mg/dL Glucose (74-99) mg/dL Plasma Lactic Acid Ross (0.7-2.0) mmol/L CK-MB (CK-2) (0.0-2.4) ng/mL Assessment and Plan Plan: This is an 78-year-old female patient well-known to ID service as she was [facility] with wound VAC to the left shoulder ulcer. Patient presents with acute hypoxic respiratory failure secondary to pneumonia, lactic acidosis and sepsis. Blood culture is status received. Sputum cultures on collected. Dr. Hernández is on consult for intensive care management patient to be transferred to the ICU. She is currently on Levaquin 750 mg daily and Zosyn and Vanco has been added by Dr. Hernández. Continue supportive care. Prognosis is guarded. The above dictated assessment and findings were discussed with Dr. Monge. The impression and plan of care have been directed as dictated. Dasia Cox nurse practitioner acting as scribe for Dr. Monge.
[2018-09-02] MEDS ORDERED: VANCOMYCIN IV PER PHARMACY 1 EACH MISC MISCELLANE PRN (10:52)
[2018-09-02] MEDS ORDERED: VANCOMYCIN 1,000 MG in SODIUM CHLORIDE 0.9% 250 ML IVPB STA (10:58)
[2018-09-02 11:54] VITALS: BMI 20.6
--- NOTE | 2018-09-02 12:14 | XR ---
EXAMINATION TYPE: XR chest 1V portable DATE OF EXAM: 09/02/2018 COMPARISON: Prior chest x-ray 09/01/2018 HISTORY: Pneumonia TECHNIQUE: Single frontal view of the chest is obtained. FINDINGS: Patient is rotated, there is worsening airspace disease bilaterally. Heart is enlarged. Meera pical pleural thickening again noted. Distortion of the proximal left humerus may be posttraumatic. T here are overlying cardiac leads. No evident pleural effusion. Heart is likely stable. IMPRESSION: Findings may represent pneumonia, correlate to exclude congestive heart failure and pulm onary edema.
[2018-09-02] MEDS: KETOROLAC 30 MG/ML 1 ML VIAL IVP SCH ×3 (13:10→23:43)
[2018-09-02] MEDS: PIPERACILLIN-TAZOBACTAM 3.375 GM in DEXTROSE/WATER 1 50ML.BAG IVPB SCH ×2 (14:56→19:00)
--- NOTE | 2018-09-02 16:11 | P.CNPUL ---
History of Present Illness Consult date: 09/02/18 Reason for consult: pneumonia History of present illness: This is an 78-year-old female patient who came into the hospital because of an acute respiratory distress. The patient is quite debilitated and she is essentially bedridden for quite some time. She has been under the care of Dr. Monge of the wound center as the patient has a nonhealing wound over the left shoulder that's been present force quite some time and the patient is currently being treated with a wound VAC. She is being taken care of by her and she also has a caregiver. She has history of a fall and hip fracture and since then, the patient's health has been gradually declining the patient has not been able to ambulate. She apparently acutely got sick. Over the past 2 days, the patient developed increased dyspnea cough and congestion and diminished level of consciousness. Note that she has underlying dementia but despite that she is able to carry some degree of combination with the family. The patient is also being followed up by visiting physicians at home. The visiting physician was planning to common yesterday and started on some antibiotics however a mild seems that her condition got progressively worse and the patient was brought into the emergency department with a temperature 100.9 and pulse secondary 7% on room air with a white cell count of 32.2. Hemoglobin was at 7 and the lactic acid level was at 3. The patient was started on IV fluids and repeat lactic acid level came back down to 1.0 after receiving a total of 1 L of IV fluids. Currently the patient is in the intensive care unit. She is on a BiPAP at a pressure of 12/5 cm of water with an FiO2 of 100% which was weaned down to 90%. He is lethargic and somnolent. She is unable to follow any simple commands. She looks very cachectic and emaciated. She is able to tolerate a full face BiPAP mask without any major difficulties. She is still tachypneic and her respiratory rate is in the high 20s to low 30s. She is producing urine output. The patient is on no pressors for now. She is on a maintenance IV fluids of normal saline at the rate of 100 mL an hour. She has a weak cough. She has frothy secretions that she is able to spell it out and being suctioned by the nursing staff. According to the , she has adequate swallowing mechanism and she has not been noted to aspirate any food material. The chest x-ray from this current admission shows better pulmonary infiltrates and infiltrates are diffuse. The patient had 2 chest x-ray and the follow-up chest x-ray from this morning showing worsening airspace disease bilaterally along with some cardiomegaly and biapical pleural thickening. He has a wound VAC in the left shoulder. She also has stage III wound in the left elbow and a few in her buttocks on the left. S4 comorbidities, the patient has history of Alzheimer's dementia and she's been bedbound. She has rheumatoid arthritis with secondary contractures. She has Raynaud's disease and she has had a fall with hip fracture on the right. She has chronic anemia and poor vision and chronic ulceration in her buttocks and her left elbow being stage II and stage III respectively. Her current cardiac rhythm is sinus. Her CODE STATUS is DO NOT INTUBATE. Review of Systems Poor baseline performance and functional status. The patient is bedbound. The patient has underlying dementia with cognitive impairments. The patient is able to swallow and she is able to carry limited conversation with family members yet her condition has gotten significantly worse especially after her ORIF for a right hip fracture. His occurred back in 2016 and progressively she has been getting worse. 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 She has an increased risk of fall and currently she is essentially bedbound. She also has Raynaud's disease, vitamin D deficiency, degenerative arthritis History of Any Multi-Drug Resistant Organisms: None Reported Past Surgical History: Tubal Ligation Additional Past Surgical History / Comment(s): October [address] Espnial, colonoscopy, rt hip nailing Past Anesthesia/Blood Transfusion Reactions: No Reported Reaction Smoking Status: Former smoker Additional Past Alcohol Use History / Comment(s): Patient smoked briefly only many years ago. No history of illicit drug use or alcohol abuse. 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 She lives at home with her . There are no pets in the home. - Past Family History Father History Unknown: Yes Family Medical History: No Reported History Additional Family Medical History / Comment(s): in [facility] Mother Family Medical History: Hyperlipidemia, Osteoarthritis (OA) Additional Family Medical History / Comment(s): at age 92 Medications and Allergies Home Medications Medication Instructions Recorded Confirmed Type Hydroxychloroquine Sulfate 200 mg PO DAILY 08/01/14 09/01/18 History [Plaquenil] amLODIPine BESYLATE [Norvasc] 5 mg PO DAILY 08/01/14 09/01/18 History Folic Acid 1 mg PO DAILY 11/05/16 09/01/18 History Citalopram Hydrobromide 20 mg PO HS 06/30/17 09/01/18 History [Citalopram HBr] Cyanocobalamin (Vitamin B-12) 1,000 mcg PO DAILY 06/30/17 09/01/18 History [Vitamin B12] Ferrous Sulfate [Feosol] 325 mg PO DAILY 06/30/17 09/01/18 History Megestrol [Megace] 400 mg PO DAILY 06/30/17 09/01/18 History Levothyroxine Sodium [Synthroid] 100 mcg PO DAILY 08/09/17 09/01/18 History Gabapentin [Neurontin] 100 mg PO TID 12/27/17 09/01/18 History Cephalexin [Keflex] 500 mg PO Q8HR #90 cap 07/28/18 09/01/18 Rx Cholecalciferol [Vitamin D3] 5,000 unit PO FR 09/01/18 09/01/18 History Donepezil [Aricept] 10 mg PO HS 09/01/18 09/01/18 History Famotidine [Pepcid] 10 mg PO BID 09/01/18 09/01/18 History LORazepam [Ativan] 0.5 mg PO BID PRN 09/01/18 09/01/18 History Midnite 1 tab PO HS 09/01/18 09/01/18 History Naproxen 500 mg PO BID 09/01/18 09/01/18 History Allergies Allergy/AdvReac Type Severity Reaction Status Date / Time No Known Allergies Allergy Verified 09/01/18 10:25 Physical Exam Vitals: Vital Signs Temp Pulse Pulse Resp BP BP Pulse Ox 09/02/18 14:00 75 29 H 95 09/02/18 13:00 76 26 H 93 L 09/02/18 12:10 75 26 H 97 09/02/18 12:08 74 09/02/18 11:59 76 09/02/18 10:39 97.0 F L 83 32 H 145/64 94 L 09/02/18 10:37 98.6 F 84 28 H 169/73 94 L 09/02/18 10:03 97.5 F L 79 26 H 145/73 94 L 09/02/18 08:59 83 09/02/18 08:45 82 09/02/18 08:15 76 09/02/18 08:00 79 28 H 09/02/18 04:00 98.7 F 82 32 H 138/65 94 L 09/02/18 03:39 77 09/02/18 03:26 74 09/02/18 00:00 99.1 F 78 28 H 124/60 100 09/01/18 23:53 76 09/01/18 23:34 74 09/01/18 20:00 99.3 F 81 28 H 127/60 84 L 09/01/18 19:23 89 09/01/18 19:04 85 40 H 134/68 90 L 09/01/18 19:00 82 14 128/78 90 L 09/01/18 18:04 100.9 F H 82 22 125/85 93 L Intake and Output 09/02/18 09/02/18 09/02/18 06:59 14:59 22:59 Intake Total 500 Output Total 475 200 Balance -475 300 Intake: IV 400 NS 400 Intake, IV Titration 100 Amount Sodium Chloride 0.9% 1, 100 000 ml @ 999 mls/hr IV . Q1H1M ONE Rx#:[id number] Output: Urine 475 200 Uretheral (Agrawal) 175 Other: Voiding Method Diaper Indwelling Catheter Weight 58 kg 58 kg Emaciated thin frail cachectic elderly female patient that looks way although than her age. She is currently on a BiPAP mask with a full facemask and she seems to be mild degree of respiratory distress not using excessive muscle breathing and she seems to be tolerating the full face BiPAP mask without any major difficulties. She is lethargic. She opens her eyes and she responds to limited tactile and verbal stimulation. She is unable to carry a conversation. She withdraws to painful stimulation in all 4 extremities. Head exam was generally normal. There was no scleral icterus or corneal arcus. Mucous membranes were moist. Neck was supple and without jugular venous distension, thyromegaly, or carotid bruits. Carotids were easily palpable bilaterally. There was no adenopathy. Lungs sounds are diminished and the patient has diffuse rhonchi and crackles throughout the lung his bilaterally right more than left. Cardiac exam revealed the PMI to be normally situated and sized. The rhythm was regular and no extrasystoles were noted during several minutes of auscultation. The first and second heart sounds were normal and physiologic splitting of the second heart sound was noted. There were no murmurs, rubs, clicks, or gallops. Abdominal exam revealed normal bowel sounds. The abdomen was soft, non-tender, and without masses, organomegaly, or appreciable enlargement of the abdominal aorta. Extremities are very thin and the muscle is atrophy in all 4 extremities mainly in the legs. She has a stage III wound over the left elbow. The patient also has a left shoulder wound, deep with a wound VAC in place. He has Raynaud's which is more pronounced in the upper extremities more so on the right. She has contractures related to her rheumatoid arthritis. She has all of the radiation. Skin the patient has a stage II wound on her buttocks, stage III on her elbow, and it was VAC on the left shoulder. No cyanosis. No clubbing. No cellulitis. Neurologically, somnolent, lethargic, pupils are equal and reactive to light and there is no focal logical deficits. She is able to withdrawing all 4 extremities. Weak cough. Results - Laboratory Findings CBC and BMP: 09/02/18 06:14 09/02/18 06:14 PT/INR, D-dimer PT 10.4 sec (9.0-12.0) 09/01/18 09:58 INR 1.1 (<1.2) 09/01/18 09:58 Abnormal lab findings: Abnormal Labs 09/01/18 09/01/18 09/01/18 09:58 09:58 09:58 WBC 29.8 H RBC 3.42 L Hgb 8.0 L Hct 27.5 L MCH 23.5 L MCHC 29.3 L RDW 16.2 H Neutrophils # 26.8 H Chloride Carbon Dioxide 18 L BUN 41 H Glucose 111 H POC Glucose (mg/dL) Plasma Lactic Acid Ross 3.0 H* CK-MB (CK-2) 09/01/18 09/01/18 09/02/18 09:58 15:14 06:14 WBC 32.2 H RBC 2.97 L Hgb 7.0 L Hct 23.9 L MCH 23.4 L MCHC 29.1 L RDW 16.6 H Neutrophils # 30.0 H Chloride Carbon Dioxide BUN Glucose POC Glucose (mg/dL) Plasma Lactic Acid Ross 2.4 H* CK-MB (CK-2) 2.5 H 09/02/18 09/02/18 06:14 09:41 WBC RBC Hgb Hct MCH MCHC RDW Neutrophils # Chloride 115 H Carbon Dioxide 17 L BUN 34 H Glucose POC Glucose (mg/dL) 70 L Plasma Lactic Acid Ross CK-MB (CK-2) - Diagnostic Findings Chest x-ray: image reviewed Assessment and Plan Plan: Assessment, 1 acute hypoxic respiratory failure with diffuse bilateral pneumonia. Consider aspiration pneumonia. Consider gram-negative pneumonia in this patient is quite debilitated with had chronic an extensive medical problems as stated above. 2 acute BiPAP dependent respiratory failure, hypoxic in nature. 3 acute leukocytosis secondary to above 4 mild lactic acidosis secondary to above, recovered 5 diminished level of consciousness on top of chronic Alzheimer's dementia secondary to bilateral pneumonia/sepsis 6 Alzheimer's dementia with significant impairment of cognitive functions and the patient has been bedridden, currently living at home with a caregiver and her . 7 rheumatoid arthritis with crippling joint deformities in her upper extremities 8 Raynaud's disease 9 chronic wounds involving the left shoulder where the patient has a wound VAC in place. The patient also has a stage II wound on her buttocks and stage III on the elbow. The patient has been maintained on a maintenance antibiotics with Keflex as given to her by Dr. Monge. 10 chronic anemia, normocytic/microcytic with a hemoglobin level of 7.0 11 excessive protein calorie malnutrition and the patient's BMI is at 20.6 with significant muscle atrophy and loss and total body protein mass 12 chronic pain receiving nonsteroidal anti-inflammatory medication outpatient basis. 13 aortic stenosis moderate in severity with a peak aortic valve gradient of 23 mmHg and a preserved LV function with an ejection fraction of 55-60% and concentric left ventricular hypertrophy Plan The patient will be kept on BiPAP for now. We'll try to wean down FiO2 to maintain a saturation above 90%. Obtain blood culture. Obtain sputum culture if possible. Broaden antibiotic coverage to include Zosyn and vancomycin in conjunction with Levaquin to give this patient a staphylococcal and gram- negative and anaerobic coverage. Monitor white count. Monitor hemodynamics and the patient is currently on normal saline at rate of 100 mL an hour. Adequate urine output. Hemodynamics stable on no pressors. Nevertheless her performance and functional status is very poor and the patient's overall health status has been progressive decline related to her dementia and poor nutritional status. Will keep the wounds VAC on the left shoulder. We'll apply deodorant to her left shoulder and buttocks. We'll use Toradol for pain control. We'll monitor the blood gas. Monitor hemodynamics and blood work. Prognosis poor. CODE STATUS is DO NOT INTUBATE. Consult infectious disease. We'll continue to follow. Case was discussed with the and the caregiver at the bedside. Prognosis poor baseline above-mentioned comorbidities.
[2018-09-02] MEDS ORDERED: SODIUM CHLORIDE 0.9% 1,000 ML IV ONE ×2 (19:14→21:20)
--- NOTE | 2018-09-02 22:28 | PN ---
PROGRESS NOTE DATE OF SERVICE: 09/02/2018 PRESENTING COMPLAINT: Short of breath, congested. INTERVAL HISTORY: This patient presented with bilateral pneumonia, acute respiratory failure; has been on BiPAP pretty much, until I saw this patient this afternoon. Her had come in earlier. Patient was made NO ARTIFICIAL FEEDING, NO INTUBATION. Patient's caregiver is present. At her baseline, the patient is able to recognize family, talks a little bit. REVIEW OF SYSTEMS: Cannot be obtained, as patient is rather exhausted and on BiPAP. CURRENT MEDICATIONS: Reviewed. They include IV Levaquin and Zosyn and vancomycin. PHYSICAL EXAMINATION: Temperature 97, pulse 83, respiration 22, blood pressure 140/64, pulse ox 94% on BiPAP. GENERAL APPEARANCE: Propped up in bed, tired-appearing. EYES: Pupils equal. Conjunctivae pale. HEENT: External appearance of nose and ears normal. Oral cavity dry. NECK: JVD unable to assess. Mass not palpable. RESPIRATORY: Effort increased. LUNGS: Decreased breath sounds. CARDIOVASCULAR: First and second sounds normal. No edema. ABDOMEN: Soft, non-tender. Liver and spleen not palpable. PSYCHIATRY: Patient is following some simple commands. INVESTIGATIONS: White count 32.2, hemoglobin 7, potassium 4.4, BUN 34, creatinine 0.87. ASSESSMENT: 1. Probably bilateral pneumonia, suspect gram-negative organism, probably from aspiration, causing acute hypoxic respiratory failure, for which patient is requiring BiPAP, slow to respond. 2. Acute metabolic encephalopathy from above. 3. Acute sepsis from pneumonia, present on admission. 4. Acute chronic obstructive pulmonary disease exacerbation in an ex-smoker. 5. Chronic medical debility. 6. Mild to moderate protein-calorie malnutrition with low body mass index and wasting of muscles. 7. Moderate to severe cognitive impairment from advanced late-onset Alzheimer's dementia. 8. Chronic rheumatoid arthritis. 9. Chronic left shoulder wound, for which patient has a wound V.A.C. in place. 10.Normocytic anemia, probably nutritional, from underlying rheumatoid arthritis. 11.Multiple wounds. 12.CODE STATUS: DO NOT INTUBATE. OKAY FOR CPR. NO ARTIFICIAL FEEDING TUBES. PLAN: Continue current medication and treatment plan, including broad-spectrum antibiotics, including Levaquin, Zosyn, vancomycin. I did speak to the caregiver at the bedside. is not present. Patient remains critically ill in the ICU. MMODL / IJN: [id number] /
[2018-09-02] MEDS: VANCOMYCIN 1,000 MG in SODIUM CHLORIDE 0.9% 250 ML IVPB SCH (22:38)
--- NOTE | 2018-09-02 23:06 | P.CON ---
Consult Note - . Consult date: 09/02/18 Assessment/Plan:: This is an 78-year-old female well-known to ID service as she is [facility] known chronic wounds to the left shoulder, left elbow, right heel, sacrum, all present on admission. Her last appointment was on Wednesday which time she underwent a primary event and wound VAC was placed to the left shoulder wound, patient is on chronic suppressive Keflex. Patient has underlying dementia but according to family can carry on conversation. and caregiver at the bedside. Caregiver states that she was treated for the past 2 weeks with Lasix by visiting physicians and had a chest x-ray done one and half weeks ago. Visiting physician was planning to come out yesterday and start antibiotics but patient was taken to the emergency center instead. Apparently, on Wednesday night, patient started having increased phlegm and difficulty breathing and when the caregiver arrived she knew the patient had to be brought in. In the ER, patient had temperature 100.9, pulse ox 87% on room air initial white count was 29.8 is now 32.2 with hemoglobin of 7 and platelet count of 293. GFR is 63. Initial lactic acid was 3 with a second repeat at 1. She is status post 1 L of IV fluids and was started on Levaquin 750 mg. She also received IV Tylenol and nebulizer treatments. Chest x-ray shows correlate for pneumonia. Blood cultures status received. Patient was initially admitted to the selective care unit but upon evaluation, requested that Dr. Hernández be contacted for transfer to ICU. Patient normally has a good appetite and has gained weight since April although she appears to be quite thin and cachectic. Patient is able to pivot and stand to transfer to wheelchair. She has home care in place 3 times a week as well as a caregiver. She has history of rheumatoid arthritis and currently only on Naprosyn. Agrawal catheter was placed in the ER. Patient has not required vasopressors. Please see the consult note is dictated by nurse practitioner Mrs. Dasia Cox. This 78-year-old woman is awake does not recognize the observer. Patient's is present and a conversation occurs regarding current course and expectations. The patient is to the prostrate failure she's on BiPAP at 100% but is not yet hypotensive. She however is hypothermic. She is evidence of severe sepsis with what is likely an aspiration pneumonia. We discussed the patient has been seen by the speech pathologist and she was having difficulties with some aspiration and techniques of sitting her up right reutilized unclear if this is always happening under the 's supervision. At this time is likely she's had a significant aspiration and now has a significant pneumonia which is resulting in the current restaurant failure. Fortunately he agrees to intubation is not a viable option. She likely is going to have progressive restaurant failure and will not likely recover at this time. I agree with evaluation, assessment and plan as dictated by nurse practitioner Mrs. Dasia Cox.
[2018-09-02] MEDS ORDERED: FUROSEMIDE 10 MG/ML 10 ML VIAL IV STA (23:13)
[2018-09-03] MEDS: IPRATROPIUM-ALBUTEROL 3 ML NEB INHALATION SCH ×3 (03:15→13:41)
[2018-09-03 04:58] LABS: ABG Base Excess -15.7 mmol/L; ABG HCO3 16 mmol/L (21-25); ABG Oxygen Saturation 96.8 % (94-97); ABG PCO2 66 mmHg (35-45); ABG PO2 96 mmHg (83-108); ABG TCO2 18 mmol/L (19-24)
[2018-09-03 05:02] LABS: HCT 25.9 % (34.0-46.0); Hypochromasia Marked; MCH 23.2 pg (25.0-35.0); Mean Platelet Volume 6.7; Platelet Count 320 k/uL (150-450); RBC 3.02 m/uL (3.80-5.40); RDW 15.6 % (11.5-15.5); WBC 35.3 k/uL (3.8-10.6)
[2018-09-03 05:07] LABS: MCV 85.8 fL (80.0-100.0)
[2018-09-03 05:15] LABS: Glucose,Whole Blood 104 mg/dL (75-99)
[2018-09-03 05:18] LABS: Magnesium 2.1 mg/dL (1.6-2.3); Potassium 4.4 mmol/L (3.5-5.1)
[2018-09-03] MEDS ORDERED: SODIUM BICARB 8.4% 50 ML SYR (1 MEQ/ML) IV ONE (05:19)
[2018-09-03] MEDS ORDERED: SODIUM BICARB 8.4% 50 ML SYR (1 MEQ/ML) ONE (05:23)
[2018-09-03 05:26] LABS: Band Neutrophils % 3 %; Lymphocytes # (M) 0.71 k/uL (1.0-4.8); Monocytes # (M) 1.06 k/uL (0-1.0); Neutrophils % (M) 92 %; Nucleated Red Blood Cells 0 /100 WBC (0-0); Total Cells Counted 100
[2018-09-03 05:27] LABS: Poikilocytosis (M) Present
[2018-09-03] MEDS: PIPERACILLIN-TAZOBACTAM 3.375 GM in DEXTROSE/WATER 1 50ML.BAG IVPB SCH ×2 (05:29→11:27)
[2018-09-03] MEDS ORDERED: DEXTROSE 5% IN WATER 1,000 ML with SODIUM BICARB (1 MEQ/ML) 150 ML IV SCH (05:30)
[2018-09-03] MEDS: KETOROLAC 30 MG/ML 1 ML VIAL IVP SCH ×2 (05:53→11:27)
[2018-09-03 06:00] LABS: ABG PH <7.00 (7.35-7.45)
--- NOTE | 2018-09-03 08:48 | XR ---
EXAMINATION TYPE: XR chest 1V portable DATE OF EXAM: 09/03/2018 HISTORY: pneumonia. REFERENCE: Previous study dated 09/02/2018. FINDINGS: There is worsening opacity of the right upper lobe. There are patchy opacities elsewhere th roughout both lungs. The lungs are overinflated. Heart is mildly enlarged. No definite pleural fluid is seen. IMPRESSION: 1. UNDERLYING COPD. 2. WORSENING BILATERAL PNEUMONIAS.
[2018-09-03] MEDS ORDERED: FAMOTIDINE 20 MG/2 ML VIAL IV SCH (09:00)
[2018-09-03] MEDS: SODIUM CHLORIDE 0.9% 1,000 ML IV SCH (09:33)
[2018-09-03] MEDS: ENOXAPARIN 40 MG/0.4 ML SYRINGE SQ SCH (09:40)
[2018-09-03] MEDS: VANCOMYCIN 1,000 MG in SODIUM CHLORIDE 0.9% 250 ML IVPB SCH (09:41)
[2018-09-03] MEDS ORDERED: LEVOFLOXACIN 750MG-D5W PMX 750 MG in DEXTROSE/WATER 1 150ML.BAG IVPB SCH (11:00)
[2018-09-03 12:26] VITALS: TEMP 97.7
[2018-09-03] MEDS ORDERED: ATROPINE OPHTH SOLN 1% 5ML BTL SUBLINGUAL PRN (12:27)
[2018-09-03] MEDS ORDERED: MORPHINE SULFATE 2 MG/ML SYRINGE IV PRN (12:27)
[2018-09-03] MEDS ORDERED: LORazepam 2 MG/ML INJ IV PRN (12:27)
[2018-09-03] MEDS ORDERED: MORPHINE SULFATE 4 MG/ML SYRINGE IV PRN (12:27)
[2018-09-03] MEDS ORDERED: MORPHINE SULFATE (100 MG/2 ML) 100 MG in SODIUM CHLORIDE 0.9% 100 ML IV SCH (12:30)
[2018-09-03] MEDS ORDERED: SCOPOLAMINE 1.5MG/72HR PATCH TRANSDERM SCH (13:00)
[2018-09-03 14:19] VITALS: BP 108/46; PULSE 76; RESP 37
--- NOTE | 2018-09-03 14:21 | P.PN ---
Subjective Progress Note Date: 09/03/18 This is an 78-year-old female patient who came into the hospital because of an acute respiratory distress. The patient is quite debilitated and she is essentially bedridden for quite some time. She has been under the care of Dr. Monge of the wound center as the patient has a nonhealing wound over the left shoulder that's been present force quite some time and the patient is currently being treated with a wound VAC. She is being taken care of by her and she also has a caregiver. She has history of a fall and hip fracture and since then, the patient's health has been gradually declining the patient has not been able to ambulate. She apparently acutely got sick. Over the past 2 days, the patient developed increased dyspnea cough and congestion and diminished level of consciousness. Note that she has underlying dementia but despite that she is able to carry some degree of combination with the family. The patient is also being followed up by visiting physicians at home. The visiting physician was planning to common yesterday and started on some antibiotics however a mild seems that her condition got progressively worse and the patient was brought into the emergency department with a temperature 100.9 and pulse secondary 7% on room air with a white cell count of 32.2. Hemoglobin was at 7 and the lactic acid level was at 3. The patient was started on IV fluids and repeat lactic acid level came back down to 1.0 after receiving a total of 1 L of IV fluids. Currently the patient is in the intensive care unit. She is on a BiPAP at a pressure of 12/5 cm of water with an FiO2 of 100% which was weaned down to 90%. He is lethargic and somnolent. She is unable to follow any simple commands. She looks very cachectic and emaciated. She is able to tolerate a full face BiPAP mask without any major difficulties. She is still tachypneic and her respiratory rate is in the high 20s to low 30s. She is producing urine output. The patient is on no pressors for now. She is on a maintenance IV fluids of normal saline at the rate of 100 mL an hour. She has a weak cough. She has frothy secretions that she is able to spell it out and being suctioned by the nursing staff. According to the , she has adequate swallowing mechanism and she has not been noted to aspirate any food material. The chest x-ray from this current admission shows better pulmonary infiltrates and infiltrates are diffuse. The patient had 2 chest x-ray and the follow-up chest x-ray from this morning showing worsening airspace disease bilaterally along with some cardiomegaly and biapical pleural thickening. He has a wound VAC in the left shoulder. She also has stage III wound in the left elbow and a few in her buttocks on the left. comorbidities, the patient has history of Alzheimer's dementia and she's been bedbound. She has rheumatoid arthritis with secondary contractures. She has Raynaud's disease and she has had a fall with hip fracture on the right. She has chronic anemia and poor vision and chronic ulceration in her buttocks and her left elbow being stage II and stage III respectively. Her current cardiac rhythm is sinus. Her CODE STATUS is DO NOT INTUBATE. On 09/03/2018, the patient is doing extremely poor.. She is completely unresponsive. She remains on a BiPAP for respiratory support. Chest x-ray shows significant worsening of the right lung pneumonia. The patient is having agonal breathing which is extremity Which is unable to generate enough ventilation. Family is at the bedside. Blood gases from earlier this morning showed a pH of less than 7. PCO2 was 66. PO2 was 96. White cell count is up to 35.3. Hemoglobin is at 7.0. Urine output is minimal spread being given several fluid boluses. Obviously, with the worsening of the pneumonia and hemodynamics and overall condition, the patient has no chance of recovery special that the patient has failed BiPAP treatment and broad-spectrum antibiotics. I had a lengthy discussion with the family. We have decided to proceed with comfort care measures. and the caregiver and the children were the bedside. They're all agreeable. Objective - Vital Signs Vital signs: Vital Signs Temp 97.7 F 09/03/18 12:00 Pulse 79 09/03/18 13:00 Resp 41 H 09/03/18 13:00 BP 102/35 09/03/18 13:00 Pulse Ox 88 L 09/03/18 13:00 Intake & Output 09/02/18 09/03/18 09/03/18 18:59 06:59 18:59 Intake Total 1362.5 2900 885.578 Output Total 290 162 65 Balance 1072.5 2738 820.578 Weight 46.2 kg 46.9 kg Intake: IV 1000 2900 885.0 Dextrose 5% in Water 1, 450 000 ml @ 75 mls/hr IV . [id number] JARRED with Sodium Bicarb (1 Meq/ml) 150 ml Rx#:[id number] Levofloxacin 750Mg-D5w 100 Pmx 750 mg In Dextrose/ Water 1 150ml.bag @ 100 mls/hr IVPB Q48H [facility] Rx#: [id number] NS 1000 900 60 Piperacillin-Tazobactam 3 25.0 .375 gm In Dextrose/Water 1 50ml.bag @ 12.5 mls/hr IVPB Q8H [facility] Rx#: [id number] Sodium Chloride 0.9% 1, 1000 000 ml @ 999 mls/hr IV . Q1H1M [facility] Rx#:[id number] Sodium Chloride 0.9% 1, 1000 000 ml @ 999 mls/hr IV . Q1H1M [facility] Rx#:[id number] Vancomycin 1,000 mg In 250 Sodium Chloride 0.9% 250 ml @ 125 mls/hr IVPB BID [facility] Rx#:[id number] Intake, IV Titration 362.5 0.578 Amount Morphine Sulfate (100 mg/ 0.578 2 ml) 100 mg In Sodium Chloride 0.9% 100 ml @ 1 MG/HR 1.02 mls/hr IV . Q24H [facility] Rx#:[id number] Piperacillin-Tazobactam 3 12.5 .375 gm In Dextrose/Water 1 50ml.bag @ 12.5 mls/hr IVPB Q8H [facility] Rx#: [id number] Sodium Chloride 0.9% 1, 100 000 ml @ 999 mls/hr IV . Q1H1M [facility] Rx#:[id number] Vancomycin 1,000 mg In 250 Sodium Chloride 0.9% 250 ml @ 125 mls/hr IVPB BID [facility] Rx#:[id number] Output: Urine 290 162 65 Other: Voiding Method Indwelling Catheter Indwelling Catheter - Exam Emaciated thin frail cachectic elderly female patient that looks way although than her age. She is currently on a BiPAP mask with a full facemask and she is completely unresponsive agonal breathing on able to generate enough ventilation even with the BiPAP. Head exam was generally normal. There was no scleral icterus or corneal arcus. Mucous membranes were moist. Neck was supple and without jugular venous distension, thyromegaly, or carotid bruits. Carotids were easily palpable bilaterally. There was no adenopathy. Lungs sounds are diminished and the patient has diffuse rhonchi and crackles throughout the lung his bilaterally right more than left. Cardiac exam revealed the PMI to be normally situated and sized. The rhythm was regular and no extrasystoles were noted during several minutes of auscultation. The first and second heart sounds were normal and physiologic splitting of the second heart sound was noted. There were no murmurs, rubs, clicks, or gallops. Abdominal exam revealed normal bowel sounds. The abdomen was soft, non-tender, and without masses, organomegaly, or appreciable enlargement of the abdominal aorta. Extremities are very thin and the muscle is atrophy in all 4 extremities mainly in the legs. She has a stage III wound over the left elbow. The patient also has a left shoulder wound, deep with a wound VAC in place. He has Raynaud's which is more pronounced in the upper extremities more so on the right. She has contractures related to her rheumatoid arthritis. She has all of the radiation. Skin the patient has a stage II wound on her buttocks, stage III on her elbow, and it was VAC on the left shoulder. No cyanosis. No clubbing. No cellulitis. Neurologically, the patient is unresponsive to verbal and painful stimulation. - Labs CBC & Chem 7: 09/03/18 04:48 09/03/18 04:48 Labs: Abnormal Lab Results - Last 24 Hours (Table) 09/03/18 09/03/18 09/03/18 Range/Units 04:48 04:48 04:57 WBC 35.3 H (3.8-10.6) k/uL RBC 3.02 L (3.80-5.40) m/uL Hgb 7.0 L (11.4-16.0) gm/dL Hct 25.9 L (34.0-46.0) % MCH 23.2 L (25.0-35.0) pg MCHC 27.0 L (31.0-37.0) g/dL RDW 15.6 H (11.5-15.5) % Neutrophils # (Manual) 33.50 H (1.3-7.7) k/uL Lymphocytes # (Manual) 0.71 L (1.0-4.8) k/uL Monocytes # (Manual) 1.06 H (0-1.0) k/uL ABG pH <7.00 L* (7.35-7.45) ABG pCO2 66 H (35-45) mmHg ABG HCO3 16 L (21-25) mmol/L ABG Total CO2 18 L (19-24) mmol/L Sodium 148 H (137-145) mmol/L Chloride 124 H (98-107) mmol/L Carbon Dioxide 14 L (22-30) mmol/L BUN 40 H (7-17) mg/dL POC Glucose (mg/dL) (75-99) mg/dL Calcium 8.0 L (8.4-10.2) mg/dL Phosphorus 7.0 H (2.5-4.5) mg/dL 09/03/18 Range/Units 05:12 WBC (3.8-10.6) k/uL RBC (3.80-5.40) m/uL Hgb (11.4-16.0) gm/dL Hct (34.0-46.0) % MCH (25.0-35.0) pg MCHC (31.0-37.0) g/dL RDW (11.5-15.5) % Neutrophils # (Manual) (1.3-7.7) k/uL Lymphocytes # (Manual) (1.0-4.8) k/uL Monocytes # (Manual) (0-1.0) k/uL ABG pH (7.35-7.45) ABG pCO2 (35-45) mmHg ABG HCO3 (21-25) mmol/L ABG Total CO2 (19-24) mmol/L Sodium (137-145) mmol/L Chloride (98-107) mmol/L Carbon Dioxide (22-30) mmol/L BUN (7-17) mg/dL POC Glucose (mg/dL) 104 H (75-99) mg/dL Calcium (8.4-10.2) mg/dL Phosphorus (2.5-4.5) mg/dL Microbiology - Last 24 Hours (Table) 09/01/18 09:58 Blood Culture - Preliminary Blood No Growth after 48 hours Assessment and Plan Plan: Assessment, 1 acute hypoxic and hypercapnic respiratory failure with diffuse bilateral pneumonia. Clinical and radiographic worsening of the pneumonia on today's evaluation with severe metabolic/respiratory acidosis and unresponsiveness him off failing BiPAP treatment. 2 acute BiPAP dependent respiratory failure, hypoxic/hypercapnic in nature. 3 acute leukocytosis secondary to above 4 severe metabolic acidosis 5 unresponsiveness secondary to above 6 Alzheimer's dementia with significant impairment of cognitive functions and the patient has been bedridden, currently living at home with a caregiver and her . 7 rheumatoid arthritis with crippling joint deformities in her upper extremities 8 Raynaud's disease 9 chronic wounds involving the left shoulder where the patient has a wound VAC in place. The patient also has a stage II wound on her buttocks and stage III on the elbow. The patient has been maintained on a maintenance antibiotics with Keflex as given to her by Dr. Monge. 10 chronic anemia, normocytic/microcytic with a hemoglobin level of 7.0 11 excessive protein calorie malnutrition and the patient's BMI is at 20.6 with significant muscle atrophy and loss and total body protein mass 12 chronic pain receiving nonsteroidal anti-inflammatory medication outpatient basis. 13 aortic stenosis moderate in severity with a peak aortic valve gradient of 23 mmHg and a preserved LV function with an ejection fraction of 55-60% and concentric left ventricular hypertrophy Plan Patient stands no chance of recovery. Pneumonia is worse. She is completely unresponsive. She has failed BiPAP therapy. Had a discussion with a and the family. We'll proceed with comfort care measures.
--- NOTE | 2018-09-04 09:51 | DS ---
DISCHARGE SUMMARY DATE OF ADMISSION: 09/01/18. DATE PATIENT : 09/03/2018. FINAL DIAGNOSES: 1. Bilateral pneumonia suspect gram-negative organism probably from aspiration causing acute hypoxic respiratory failure. 2. Acute metabolic encephalopathy from above. 3. Acute sepsis from pneumonia, severe, present on admission. 4. Acute chronic obstructive pulmonary disease in an exacerbation an ex-smoker. 5. Chronic medical debility. 6. Mild to moderate protein-calorie malnutrition. 7. Moderate to severe cognitive impairment from advanced late onset Alzheimer's dementia. 8. Chronic rheumatoid arthritis. 9. Chronic left shoulder wound for which patient has a wound VAC in place. 10.Normocytic anemia probably nutritional and from underlying rheumatoid arthritis. 11.Multiple wounds. CAUSE OF : Pneumonia. CONSULTATIONS: Dr. Monge, Infectious Disease and Dr. Hernández from Pulmonary Critical Care. HOSPITAL COURSE: This patient with advanced dementia presented with a septic picture, was put on BiPAP and was in the ICU. The patient continued to struggle, not responsive, continued to get worse. decided to make her comfort care after discussion with Dr. Hernández. I did talk to the . The family was present. They had no further questions. Comfort measures were initiated. The patient succumbed to underlying . The patient earlier on examination, the patient was unresponsive, tachypneic and desaturating. The patient's 's questions were answered. Copy to visiting physician: Dr. Alvarez. Today total time spent was more than 35 minutes. MMODL / IJN: [id number] /
--- NOTE | 2018-09-07 08:33 | CDI ---
Last Revision, October 2017 Documentation Clarification Form Date: 09/07/18 From: Ximena Kenrick Rachael Mendoza, Industry Analyst Hours-8:30 am & 5 pm M-F Admit Date: 09/01/2018 12:05:00 PM Patient Name: Maddy Cruz Visit Number: [id number] Discharge Date: 09/03/18 ATTENTION: The Clinical Documentation Specialists (CDI) and [facility] Coding Staff appreciate your assistance in clarifying documentation. Please respond to the clarification below the line at the bottom and electronically sign. The CDI & [facility] Coding staff will review the response and follow-up if needed. Please note: Queries are made part of the Legal Health Record. If you have any questions, please contact the author of this message via ITS. Neno Mcdermott MD 9 chronic ulcer/wounds are documented in the consult and PNs. Left shoulder, left elbow (stage III), right heel (stage II), sacrum (stage II) & left lateral 5th metatarsal (stage not identified). Patient history/risk factors: malnutrition, cachexia, sepsis, aspiration gram- neg PNA, RA. OA, Alzheimer's Labs: albumin-3.6, total protein-6.4 Wound assessment: Sacrum stage II, right heel-Type 2, left elbow-Stage III Treatment: wound vac to left shoulder Medication: Megace In your professional opinion, can the etiology and severity of the wound be further specified as one of the following? Etiology: Decubitus ulcer Non-pressure chronic ulcer due to diabetes Non-pressure chronic ulcer due to arterial insufficiency Non-pressure chronic ulcer due to venous insufficiency Non-pressure chronic ulcer due to trauma Other, Please specify Unable to determine Severity of metatarsal ulcer: Limited to breakdown of skin With fat layer exposed With necrosis of muscle With necrosis of bone Other, Please specify Unable to determine Please continue to document in your progress notes and discharge summary in order to capture severity of illness and risk of mortality. Include clinical findings that support your diagnosis. UNABLE TO DETERMINE MTDD
--- NOTE | 2018-09-07 08:44 | CDI ---
Last Revision, October 2017 Documentation Clarification Form Date: 09/07/18 From: Ximena Kenrick Rachael Mendoza, Business Programmer Hours-8:30 am & 5 pm MAnika Admit Date: 09/01/2018 12:05:00 PM Patient Name: Maddy Cruz Visit Number: [id number] Discharge Date: 09/03/18 ATTENTION: The Clinical Documentation Specialists (CDI) and [facility] Coding Staff appreciate your assistance in clarifying documentation. Please respond to the clarification below the line at the bottom and electronically sign. The CDI & [facility] Coding staff will review the response and follow-up if needed. Please note: Queries are made part of the Legal Health Record. If you have any questions, please contact the author of this message via ITS. Neno Mcdermott MD Mild to moderate malnutrition has been documented in H&P, Dr Hernández consult & 09/03 PN, your 09/02 PN & DS. History/Risk Factors: Alzheimer's, RA, OA, 9 chronic wounds/ulcers, asp/gm neg PNA, sepsis Clinical Indicators: musculoskeletal diffuse wasting of muscles, cachexia Labs: Albumin/ Total Protein: 3.6/6.4 Current BMI: 20.6/16.7 Insufficient energy intake: poor, full liquid diet Treatment: Megace Dietary Consult: yes Supplements/TPN: liquid diet Lab monitoring: albumin, total protein In your professional opinion, can you please clarify only one type of malnutrion : Mild Protein-Calorie Malnutrition Moderate Protein-Calorie Malnutrition Severe Protein-Calorie Malnutrition Other condition, please specify Unable to determine Please continue to document in your progress notes and discharge summary in order to capture severity of illness and risk of mortality. Include clinical findings that support your diagnosis. MODERATE PROTEIN CALORIE MALNUTRITION MTDD
== END 2018-09-03 16:52 | disposition expired | DRG 871 ==
LOC: EC 08:33 → 3SCARD 12:05 → 2SICU 09-02 09:39
PROVIDERS: ADMIT Hospitalist; ATTEND Hospitalist
PROC: 5A09457 Assistance with Respiratory Ventilation, 24-96 Consecutive Hours, Continuous Positive Airway Pressure (ICD-10-PCS; principal; 2018-09-01)
DX: A41.50 Gram-negative sepsis, unspecified (principal); J69.0 Pneumonitis due to inhalation of food and vomit; J15.6 Pneumonia due to other Gram-negative bacteria; J96.01 Acute respiratory failure with hypoxia; G93.41 Metabolic encephalopathy; R64 Cachexia; J44.1 Chronic obstructive pulmonary disease with (acute) exacerbation; J44.0 Chronic obstructive pulmonary disease with (acute) lower respiratory infection; E87.2 Acidosis; E44.0 Moderate protein-calorie malnutrition; Z68.1 Body mass index [BMI] 19.9 or less, adult; R65.20 Severe sepsis without septic shock; D64.9 Anemia, unspecified; S41.002A Unspecified open wound of left shoulder, initial encounter; Z66 Do not resuscitate; Z51.5 Encounter for palliative care; I35.0 Nonrheumatic aortic (valve) stenosis; M06.9 Rheumatoid arthritis, unspecified; G30.1 Alzheimer's disease with late onset; F02.80 Dementia in other diseases classified elsewhere, unspecified severity, without behavioral disturbance, psychotic disturbance, mood disturbance, and anxiety; I73.00 Raynaud's syndrome without gangrene; I51.7 Cardiomegaly; E03.9 Hypothyroidism, unspecified; E78.5 Hyperlipidemia, unspecified; E55.9 Vitamin D deficiency, unspecified; M19.91 Primary osteoarthritis, unspecified site; H54.60 Unqualified visual loss, one eye, unspecified; Z79.2 Long term (current) use of antibiotics; Z79.1 Long term (current) use of non-steroidal anti-inflammatories (NSAID); Z79.818 Long term (current) use of other agents affecting estrogen receptors and estrogen levels; Z79.890 Hormone replacement therapy; Z79.899 Other long term (current) drug therapy; Z87.81 Personal history of (healed) traumatic fracture; Z87.891 Personal history of nicotine dependence; Z91.81 History of falling; Z86.59 Personal history of other mental and behavioral disorders; Z74.01 Bed confinement status; Z98.51 Tubal ligation status; Z83.49 Family history of other endocrine, nutritional and metabolic diseases; Z83.1 Family history of other infectious and parasitic diseases
CPT/HCPCS: 36415; 36600; 71045; 71046; 80048; 80053; 82550; 82553; 82805; 83605; 83735; 83880; 84100; 84443; 84484; 85025; 85610; 85730; 87040; 93005; 94640; 94660; 96365; 96375; 99285